=== PATIENT | female | born 2000 | race Caucasian/White ===

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

== ENCOUNTER 2019-01-01 10:34 | Day surgery (SDC) | payer BC ==
[~2019-01-01] VITALS: Ht 162.6 cm; Wt 90.6 kg
[~2019-01-01 10:34] MED LIST changes: +ACET500T15 PO; -ACETAMINOPHEN TAB 650MG DOSE (2X325MG) PO; +AMOX875T PO; +BACT400T PO; +CIPR500T3; +KETO10TAB PO; +LEVOTAB18 PO; -MAALOX 30 ML SUSP *UDC PO; -MOM 30ML SUSPENSION UDC PO; +NAPR-50 PO; +ONDA4TAB6; +TRAZ-160 PO; +VIST25CA PO; +WELLTAB38 PO; +WELLTAB40 PO; +ZOFR4TAB14 PO; +ZOLO25TA PO; -diphenhydrAMINE 25 MG CAP PO
[2019-01-01] MEDS ORDERED: MORPHINE 2 MG/ML 1ML SYRINGE (J2270) IV ONE (11:00)
[2019-01-01] MEDS ORDERED: NS 1,000 ML IV ONE (11:00)
[2019-01-01] MEDS ORDERED: ONDANSETRON 4MG/2ML VIAL (J2405) IV ONE (11:00)
[2019-01-01 11:16] LABS: BASO % 0.3 % (0.0-1.0); EOS # 0.1 10^3/uL (0.0-0.50); EOS % 0.6 % (0.0-3.0); HEMATOCRIT 41.9 % (36.0-47.0); HEMOGLOBIN 13.8 g/dl (12.0-15.5); LYMPH # 1.5 10^3/uL (1.5-6.5); LYMPH % 15.4 % (24.0-44.0); MEAN CORPUSCULAR HEMOGLOBIN 27.4 pg (27.0-33.0); MEAN CORPUSCULAR HGB CONC 32.9 g/dl (32.0-36.5); MEAN CORPUSCULAR VOLUME 83.3 fl (80.0-96.0); MONO # 0.7 10^3/uL (0.0-0.8); MONO % 7.2 % (0.0-5.0); NEUTROPHILS # 7.3 10^3/uL (1.8-7.7); NEUTROPHILS % 76.2 % (36.0-66.0); PLATELET COUNT, AUTOMATED 256 10^3/uL (150-450); RED BLOOD COUNT 5.03 10^6/uL (4.00-5.40); WHITE BLOOD COUNT 9.6 10^3/uL (4.0-10.0)
[2019-01-01 12:14] LABS: HCG, SERUM QUALITATIVE NEGATIVE (NEGATIVE)
[2019-01-01 12:21] LABS: ALBUMIN 3.8 GM/DL (3.2-5.2); ALT/SGPT 27 U/L (12-78); AMYLASE 27 U/L (25-115); BILIRUBIN,DIRECT < 0.1 MG/DL (0.0-0.2); BILIRUBIN,TOTAL 0.4 MG/DL (0.2-1.0); BLOOD UREA NITROGEN 7 MG/DL (7-18); CALCIUM LEVEL 8.4 MG/DL (8.5-10.1); CARBON DIOXIDE LEVEL 26 MEQ/L (21-32); CHLORIDE LEVEL 108 MEQ/L (98-107); GLUCOSE, FASTING 88 MG/DL (70-100); LIPASE 68 U/L (73-393); POTASSIUM SERUM 4.1 MEQ/L (3.5-5.1); SODIUM LEVEL 141 MEQ/L (136-145); TOTAL PROTEIN 6.8 GM/DL (6.4-8.2)
[2019-01-01] MEDS ORDERED: ISOVUE-370 76% 100ML VIAL (Q9967) As Ordered ONE (12:31)
--- NOTE | 2019-01-01 13:01 | REP ---
Clinical: Right lower quadrant pain. Technique: Axial contrast enhanced images from the lung bases to the pubic symphysis using 100 ml Isovue 370 intravenous contrast material with coronal and sagittal re-formations. Findings: Dilated hyperemic appendix measures 13 mm diameter with periappendiceal stranding, and findings are consistent with acute appendicitis (images 105-116). Small amount of free fluid noted in the pelvis. No evidence for bowel obstruction, perforation, or drainable collection/abscess. Remainder of the small large bowel is unremarkable. Liver, spleen, pancreas, gallbladder, bilateral adrenal glands and kidneys are normal. Pelvis demonstrates normal bladder and age-appropriate uterus/adnexa with IUD in satisfactory position. No significant adenopathy. No free air. Abdominal aorta and vasculature normal. Musculoskeletal structures are intact. Lung bases are clear. Impression: Acute appendicitis as described above. Electronically Signed by Chidi Banks MD 01/01/2019 12:52 P
[2019-01-01] MEDS ORDERED: PIPERACILLIN/TAZOBACTAM SOD 3.375 GM in D5W MINI-BAG PLUS 50 ML IV ONE ×2 (13:15→19:30)
[2019-01-01] MEDS ORDERED: ACET500T15 PO (13:39)
[2019-01-01] MEDS ORDERED: SKYL13.5 IU (13:39)
[2019-01-01] MEDS ORDERED: IBUP200T45 PO (13:39)
[2019-01-01] MEDS ORDERED: BUPIVACAINE HCL 0.25% 30 ML VIAL As Ordered ONE (14:10)
[2019-01-01] MEDS ORDERED: MORPHINE 4 MG/ML 1ML VIAL/SYRINGE (J2270) IV PRN ×2 (15:15)
[2019-01-01] MEDS ORDERED: KETOROLAC 30 MG/ML VIAL (J1885) IV PRN (15:15)
[2019-01-01] MEDS ORDERED: ONDANSETRON 4MG/2ML VIAL (J2405) IV PRN ×2 (15:15→19:00)
[2019-01-01] MEDS ORDERED: SUGAMMADEX SODIUM 500 MG/5 ML VIAL (BRIDION) As Ordered ONE (18:53)
[2019-01-01] MEDS ORDERED: MIDAZOLAM INJ 2 MG/2 ML VIAL (J2250) As Ordered ONE (18:53)
[2019-01-01] MEDS ORDERED: KETOROLAC 60 MG/2 ML VIAL (J1885) As Ordered ONE (18:53)
[2019-01-01] MEDS ORDERED: KETAMINE HCL 200 MG/20 ML VIAL As Ordered ONE (18:53)
[2019-01-01] MEDS ORDERED: ROCURONIUM BROMIDE 50 MG/5 ML VIAL As Ordered ONE (18:53)
[2019-01-01] MEDS ORDERED: dexameTHASONE 4 MG/ML 1ML VIAL (J1100) As Ordered ONE ×2 (18:53→18:54)
[2019-01-01] MEDS ORDERED: fentaNYL 250 MCG/5 ML INJECTION (J3010) As Ordered ONE (18:53)
[2019-01-01] MEDS ORDERED: ONDANSETRON 4MG/2ML VIAL (J2405) As Ordered ONE (18:53)
[2019-01-01] MEDS ORDERED: LIDOCAINE 2% INJ 100 MG/5 ML SDV (FOR ANES.) As Ordered ONE (18:53)
[2019-01-01] MEDS ORDERED: PROPOFOL 200 MG/20 ML VIAL As Ordered ONE (18:53)
[2019-01-01] MEDS ORDERED: NORCO, ANEXSIA 5/325MG TABLET (HYDROcodone/ACETAMINOPHEN) PO PRN (19:00)
[2019-01-01] MEDS ORDERED: fentaNYL 100 MCG/2 ML INJECTION (J3010) IV PRN (19:00)
[2019-01-01] MEDS ORDERED: ACETAMINOPHEN 500 MG TAB PO PRN (19:00)
[2019-01-01] MEDS ORDERED: LR 1,000 ML IV SCH (19:00)
[2019-01-01] MEDS ORDERED: MORPHINE 10 MG/ML 1ML VIAL (J2270) IV PRN (19:00)
[2019-01-01] MEDS ORDERED: METOCLOPRAMIDE INJ 10MG/2ML VIAL (J2765) IV PRN (19:00)
[2019-01-01] MEDS ORDERED: PERCOCET 5MG/325MG TAB PO PRN (19:00)
[2019-01-01] MEDS ORDERED: IBUPROFEN 400 MG TAB PO PRN (19:00)
[2019-01-01 19:55] VITALS: BP 110/75
[2019-01-01 20:25] VITALS: BP 118/70
[2019-01-01 20:55] VITALS: BP 102/58
[2019-01-01] MEDS: LR 1,000 ML IV SCH ×2 (21:48→23:12)
[2019-01-01 22:00] VITALS: BP 122/77
[2019-01-01 23:00] VITALS: BP 122/73
[2019-01-02] VITALS: BP 105/58
[2019-01-02 01:00] VITALS: BP 102/58
[2019-01-02 06:00] VITALS: BP 128/65
[2019-01-02] MEDS: LR 1,000 ML IV SCH (07:12)
[2019-01-02] MEDS ORDERED: NORCOTAB PO (09:45)
--- NOTE | 2019-01-02 14:06 | RO ---
DATE OF PROCEDURE: 01/01/2019 PREOPERATIVE DIAGNOSIS: Acute appendicitis. POSTOPERATIVE DIAGNOSIS: Acute appendicitis. PROCEDURE PERFORMED: Laparoscopic appendectomy. SURGEON: Dr. Wade Stahl RN INFORMATICS: ANESTHESIA: General. INDICATIONS FOR PROCEDURE: Patient is a pleasant 18-year-old woman who presented to the emergency department with a roughly 1-day history of abdominal pain which became localized to the right lower quadrant. She had marked tenderness on palpation in the right lower quadrant. A CT scan was done in the emergency department which showed a dilated and inflamed appendix. She is now for a laparoscopic appendectomy. OPERATIVE PROCEDURE: The patient was brought to the operating room and placed supine on the operating table. She was placed under general endotracheal anesthesia. The patient's abdomen was prepped and draped in a sterile fashion. 0.25% Marcaine was infiltrated at each of the trocar sites. A short supraumbilical midline incision was made and deepened through the abundant subcutaneous fat to the fascia. The fascia was opened along the midline and the peritoneum was opened bluntly. A Bennett cannula was inserted and the abdomen was inflated with carbon dioxide gas. The patient was tilted to a Trendelenburg position and rolled to the left. Initial inspection revealed a normal-appearing liver and gallbladder. Visualized portions of the small and large bowel were normal. There was omentum adherent down into the right lower quadrant. A 5 mm trocar was placed low in the midline and a second 5 mm trocar was placed in the left lower quadrant. Graspers were inserted. The omentum was peeled away from an underlying dilated inflamed appendix. The appendix was quite dilated in its distal two thirds approximately, but there was no evidence of perforation or gangrene. The appendix was elevated by the mesoappendix. The peritoneum of the mesoappendix was divided using the hook cautery. The mesoappendix was then stapled with a white load of the 45 mm endoscopic linear cutter. There was a small amount of bleeding at the staple line and this was controlled with the cautery. Some remaining fragments of the mesoappendix were divided with the cautery. The base of the appendix was nicely exposed and this was then stapled with a blue load of the linear cutter stapler. The appendix was placed in an Endopouch. Minimal bleeding points on the staple line were cauterized carefully. The right lower quadrant was then irrigated and inspected. There was no evidence of bleeding and the staple lines looked well approximated with no evidence of bleeding. The patient was returned to a flat position. The abdomen was deflated and the trocars were removed. The appendix was recovered through the Bennett site and this was sent for permanent pathology. The fascia at the Bennett site was closed with interrupted simple sutures of #2-0 Vicryl. The skin incisions were all closed with buried #5-0 Vicryl and Steri-Strips. Light dressings were applied. The patient tolerated the procedure well without apparent complication. She was awakened in the operating room, extubated and moved to the recovery room in stable condition.
== END 2019-01-02 10:33 | disposition home or self-care (01) ==
LOC: M ED 10:34 → M SDC 15:10 → M MS4PR 19:55 → M SDC 01-02 10:33
PROVIDERS: ATTEND Surgery
DX: K35.80 Unspecified acute appendicitis (principal); F32.9 Major depressive disorder, single episode, unspecified
CPT/HCPCS: 36415; 44970; 74177; 80048; 80076; 81001; 82150; 83690; 84703; 85025; 87086; 88304; 96365; 96375; 96376; 99284; J1100; J1885; J2250; J2270; J2405; J2543; J3010; Q9967

== ENCOUNTER → 2019-09-22 | Outpatient (CLI) | payer BC ==
[~2019-09-22] MED LIST changes: +HYDR-3715 PO; +IBUP200T45 PO; -NAPR-50 PO; +NAPR-837 PO; +SKYL13.5 IU; -TRAZ-160 PO; +TRAZ-252 PO
== END ==
LOC: MERGE 09:32 → M LRY 09:32
PROVIDERS: ATTEND Advanced Practice Midwife
DX: Z32.01 Encounter for pregnancy test, result positive (principal)

== ENCOUNTER → 2019-09-23 | Outpatient (CLI) | payer BC ==
--- NOTE | 2019-09-23 11:55 | REP ---
OB ULTRASOUND: Real-time sonographic evaluation of the gravid uterus performed. There is a single living intrauterine gestation with an estimated gestational age 17 weeks 4 days, EDC 02/27/2020. BPD 38 mm = 17 weeks 5 days HC 141 mm = 17 weeks 3 days AC 115 mm = 17 weeks 2 days FL 26 mm = 17 weeks 6 days HC/AC ratio 1.23 within normal range. Estimated weight 198 grams 44th percentile. SEEN/GROSSLY UNREMARKABLE Lateral ventricles Yes Posterior fossa Yes Upper lip Yes Four-chamber heart No LVOT Yes RVOT Yes Stomach Yes Cord insertion Yes Three vessel cord Yes Kidneys Yes Bladder Yes Spine Yes Cervix is closed and measures 3.5 cm in length. heart rate 160 beats per minute. position: Vertex. Placenta: Anterior and grade 0 with no previa or abruption. Amniotic fluid: Within normal limits. Posterior linear echogenic focus is noted along the inner myometrial surface and along amniotic surface likely representing the patient's IUD. Electronically Signed by Maikol Garcia MD 09/24/2019 10:31 A
== END ==
LOC: M RAD 09:17 → MERGE 09:17 → UNMERGE 09:17
PROVIDERS: ATTEND Advanced Practice Midwife
DX: Z36.3 Encounter for antenatal screening for malformations (principal); Z3A.17 17 weeks gestation of pregnancy; Z97.5 Presence of (intrauterine) contraceptive device

== ENCOUNTER → 2019-10-07 | Outpatient (CLI) | payer BC ==
[2019-10-07 14:45] LABS: BASO % 0.5 % (0.0-1.0); EOS # 0.1 10^3/uL (0.0-0.5); EOS % 0.9 % (0.0-3.0); HEMOGLOBIN 12.9 g/dl (12.0-15.5); LYMPH # 1.8 10^3/uL (1.5-5.0); LYMPH % 21.3 % (24.0-44.0); MEAN CORPUSCULAR HEMOGLOBIN 28.7 pg (27.0-33.0); MEAN CORPUSCULAR HGB CONC 33.1 g/dl (32.0-36.5); MEAN CORPUSCULAR VOLUME 86.7 fl (80.0-96.0); MONO # 0.6 10^3/uL (0.0-0.8); MONO % 6.7 % (0.0-5.0); NEUTROPHILS # 5.9 10^3/uL (1.5-8.5); NEUTROPHILS % 69.7 % (36.0-66.0); PLATELET COUNT, AUTOMATED 220 10^3/uL (150-450); WHITE BLOOD COUNT 8.5 10^3/uL (4.0-10.0)
[2019-10-07 15:04] LABS: CHLAMYDIA DNA AMPLIFICATION NEGATIVE (NEGATIVE); GC DNA AMPLIFICATION NEGATIVE (NEGATIVE)
[2019-10-08 10:26] LABS: HEPATITIS C VIRUS ABY INDEX 0.1 INDEX (<0.8); HIV 1&2 SCREEN CENTAUR NEGATIVE (NEGATIVE); RUBELLA IgG QUALITATIVE IMMUNE (IMMUNE)
== END ==
LOC: M PLALAB 09:23
PROVIDERS: ATTEND Advanced Practice Midwife
DX: O26.30 Retained intrauterine contraceptive device in pregnancy, unspecified trimester (principal)

== ENCOUNTER 2019-10-10 08:36 | Outpatient (CLI) | payer BC ==
[~2019-10-10] VITALS: Ht 160 cm; Wt 102.4 kg
[2019-10-10 09:48] LABS: MEAN CORPUSCULAR HGB CONC 33.3 g/dl (32.0-36.5); MEAN CORPUSCULAR VOLUME 84.1 fl (80.0-96.0); PLATELET COUNT, AUTOMATED 201 10^3/uL (150-450); RED BLOOD COUNT 4.64 10^6/uL (4.00-5.40); WHITE BLOOD COUNT 10.5 10^3/uL (4.0-10.0)
--- NOTE | 2019-10-10 10:13 | REP ---
Clinical: Epigastric pain and vomiting. Technique: Real time murdock scale ultrasound examination using curved array transducer. Findings: Liver and pancreas are normal. The gallbladder demonstrates 4 mm polyp without gallstones, wall thickening, or pericholecystic fluid. No biliary ductal dilatation is appreciated and the common bile duct measures 3.0 mm diameter. The right kidney is normal in reniform shape measuring 12.1 x 6.4 x 5.0 cm with mild hydronephrosis - likely induced. The patient is known to be 20 weeks . No ascites in the visualized right upper quadrant. Impression: 1. A 4 mm gallbladder polyp suggested without sonographic evidence for acute cholecystitis. 2. Mild hydronephrosis likely induced. Electronically Signed by Chidi Banks MD 10/10/2019 10:05 A
[2019-10-10 10:30] LABS: ALBUMIN 3.2 GM/DL (3.2-5.2); ALT/SGPT 21 U/L (12-78); AMYLASE 45 U/L (25-115); BILIRUBIN,DIRECT < 0.1 MG/DL (0.0-0.2); BILIRUBIN,TOTAL 0.2 MG/DL (0.2-1.0); LIPASE 65 U/L (73-393); TOTAL PROTEIN 6.6 GM/DL (6.4-8.2)
--- NOTE | 2019-10-10 11:06 | IPNPDOC ---
Text Note Date of Service The patient was seen on 10/10/19. NOTE Outpatient 18yo G 1 @ 20 wks, JAVIER 02/27/20. Presents with one day complaints of nausea/vomiting and diarrhea. Pt reports boyfriend had illness earlier this week. status reassuring for gestation Pt reports the discomfort is mostly epigastric that radiates down. Abdomen is soft, no UC on monitor LFT WNL GB sono shows small polyp without stones. Mild right hydronephrosis. Pt is now tolerating clear fluids. Reivewed risks of gall bladder in . Pt had eaten pizza last night with spaghetti and meatballs at lunch. Reviewed increased fluids, decreased fat in her diet. discharge home. keep next appt VS,Morena, I+O VS, Morena, I+O Laboratory Tests 10/10/19 09:37 Ivon Brownlee CNM Oct 10, 2019 11:06
== END 2019-10-10 11:04 | disposition home or self-care (01) ==
LOC: M LDO 08:36
PROVIDERS: ATTEND Advanced Practice Midwife
DX: O21.0 Mild hyperemesis gravidarum (principal); O99.89 Other specified diseases and conditions complicating pregnancy, childbirth and the puerperium; R19.7 Diarrhea, unspecified; O99.612 Diseases of the digestive system complicating pregnancy, second trimester; K82.8 Other specified diseases of gallbladder; N13.30 Unspecified hydronephrosis; Z3A.20 20 weeks gestation of pregnancy
CPT/HCPCS: 76705; 80076; 82150; 83690; 85027; G0378; G0463

== ENCOUNTER → 2019-11-21 | Outpatient (CLI) | payer BC ==
[2019-11-21 13:29] LABS: HEMATOCRIT 37.5 % (36.0-47.0); HEMOGLOBIN 12.3 g/dl (12.0-15.5); MEAN CORPUSCULAR HEMOGLOBIN 28.2 pg (27.0-33.0); MEAN CORPUSCULAR HGB CONC 32.8 g/dl (32.0-36.5); PLATELET COUNT, AUTOMATED 211 10^3/uL (150-450); RED BLOOD COUNT 4.36 10^6/uL (4.00-5.40)
== END ==
LOC: M PLALAB 10:57
PROVIDERS: ATTEND Advanced Practice Midwife
DX: Z34.02 Encounter for supervision of normal first pregnancy, second trimester (principal)

== ENCOUNTER → 2020-01-28 | Outpatient (REF) | payer BC | LOC: M PLALAB 10:04 | PROVIDERS: ATTEND Advanced Practice Midwife | DX: O09.893 Supervision of other high risk pregnancies, third trimester (principal) ==

== ENCOUNTER 2020-03-02 13:54 | Inpatient (IN) | payer BC ==
[~2020-03-02] VITALS: Ht 162.6 cm; Wt 107.0 kg
[2020-03-02 14:53] LABS: HEMATOCRIT 37.1 % (36.0-47.0); HEMOGLOBIN 12.6 g/dl (12.0-15.5); MEAN CORPUSCULAR HEMOGLOBIN 28.4 pg (27.0-33.0); MEAN CORPUSCULAR VOLUME 83.7 fl (80.0-96.0); PLATELET COUNT, AUTOMATED 167 10^3/uL (150-450); RED BLOOD COUNT 4.43 10^6/uL (4.00-5.40)
[2020-03-02 14:58] VITALS: BP 105/61
[2020-03-02] MEDS: miSOPROStol 50 MCG 1/2 TAB (S0191) SL SCH ×3 (15:17→23:25)
[2020-03-02 15:18] VITALS: BP 111/69
[2020-03-02] MEDS ORDERED: PRENTAB9 PO (16:00)
[2020-03-02 18:09] VITALS: BP 118/66
--- NOTE | 2020-03-02 18:39 | HPE ---
DATE OF ADMISSION: 03/02/2020 A 19-year-old 1, para 0 female at 40-4/7 weeks gestation via 17-week ultrasound, estimated date of confinement (EDC) of 02/27/2020, presents for labor induction. She has occasional contractions. She denies vaginal bleeding. There is good movement. COURSE: The patient initiated care at [facility]. She got with a Sarah intrauterine device (IUD) in place. She had a consult at the center due to family history of congenital heart defect. Everything was normal with the heart. There was mildly dilated kidney on ultrasound. MEDICAL HISTORY: 1. Impetigo. 2. Dislocated knee in 2016. 3. Suicidal ideation and depression, admitted to inpatient mental health unit December 2017. SURGICAL HISTORY: 1. Tooth extraction. 2. Appendectomy December 2018. ALLERGIES: None. SOCIAL HISTORY: Father of the baby is involved. The patient denies cigarettes, alcohol or drug use. FAMILY HISTORY: Noncontributory. PHYSICAL EXAMINATION: Blood pressure 124/74, pulse 84. No apparent distress. Head and neck exam: Normal. Lungs: Clear. Heart: Regular rate and rhythm. Abdomen: Nontender, gravid. heart tones: Category 1. Contractions: Rare. Sterile Vaginal Exam: 1, 50, -2, vertex. Extremities: Nontender. LABS: GBS negative. Blood type is A positive. ASSESSMENT: A 19-year-old 1 at 40-4/7 weeks gestation, presents for labor induction. PLAN: The patient is admitted on 03/02/2020. Risks of induction were discussed.
[2020-03-03] VITALS (26 sets, daily range): BP systolic 93–131; BP diastolic 51–78
[2020-03-03] MEDS: miSOPROStol 50 MCG 1/2 TAB (S0191) SL SCH (03:24)
[2020-03-03] MEDS ORDERED: LR 1,000 ML IV SCH (08:02)
[2020-03-03] MEDS ORDERED: OXYTOCIN DRIP 30 UNITS in IV 1 EA IV SCH ×2 (08:15→21:53)
[2020-03-03] MEDS ORDERED: miSOPROStol 50 MCG 1/2 TAB (S0191) PO ONE (09:30)
[2020-03-03] MEDS ORDERED: miSOPROStol 50 MCG 1/2 TAB (S0191) As Ordered ONE (09:34)
[2020-03-03] MEDS ORDERED: FENTANYL 2MCG/ML ROPIVACAINE 0.2% IN 0.9% NACL 100ML IVBAG As Ordered ONE (17:11)
[2020-03-03] MEDS ORDERED: NALOXONE INJ 0.4MG/1ML VIAL (J2310 PER 1MG) IV PRN (18:00)
[2020-03-03] MEDS ORDERED: EPIDURAL COMMENT XX SCH (18:00)
[2020-03-03] MEDS ORDERED: FENTANYL/ROPIVACAINE/NACL BAG 100 ML EPIDURAL SCH (18:00)
[2020-03-03] MEDS ORDERED: EPIDURAL/PCA KEYS XX PRN (18:00)
[2020-03-03] MEDS ORDERED: ONDANSETRON 4MG/2ML VIAL IV PRN (18:00)
[2020-03-03] MEDS ORDERED: REFRIGERATOR IV KEYS XX PRN (18:00)
[2020-03-03] MEDS ORDERED: LACTATED RINGER'S 1000 ML IV PRN (18:00)
[2020-03-03] MEDS ORDERED: ePHEDrine SULFATE 25 MG/5 ML(5MG/ML) SYRINGE IV PRN (18:00)
[2020-03-03] MEDS ORDERED: diphenhydrAMINE 50MG/ML VIAL (J1200) IV PRN (18:00)
[2020-03-03] MEDS ORDERED: MEASLES,MUMPS,RUBELLA VACCINE INJ (MMR-II) (90707) SC SCH (22:00)
[2020-03-03] MEDS ORDERED: METHYLERGONOVINE MALEATE 0.2 MG TAB PO PRN (22:00)
[2020-03-03] MEDS ORDERED: ACETAMINOPHEN 500 MG TAB PO PRN (22:00)
[2020-03-03] MEDS ORDERED: RHOGAM 300 MCG (1500 IU) INJ (J2790) IM SCH (22:00)
[2020-03-03] MEDS ORDERED: ACETAMINOPHEN TAB 650MG DOSE (2X325MG) PO PRN (22:00)
[2020-03-03] MEDS ORDERED: DOCUSATE SODIUM 100 MG CAP PO PRN (22:00)
[2020-03-03] MEDS ORDERED: DIBUCAINE 1% OINTMENT 30GM TOP PRN (22:00)
[2020-03-04] VITALS: BP 107/69
--- NOTE | 2020-03-04 02:46 | DN ---
DATE OF DELIVERY: 03/03/2020 Stephanie is a 19-year-old, 1, para 1-0-0-1 now, who was admitted to labor and delivery for induction of labor for term . Misoprostol, Motley bulb, and intravenous (IV) Pitocin was used and labor did ensue. She utilized an epidural for her labor coping. She reached complete dilation at 2053 hours. She pushed to a normal spontaneous vaginal delivery of a live male infant in right occiput anterior (BARBARA) position to right occiput transverse (ROT) position at 2125 hours. There was a nuchal cord times one, loose, reduced manually at the time of delivery. Shoulders delivered spontaneously, and the corpus immediately followed. The male was placed on the maternal abdomen, crying and active. Cord was clamped times two once pulsations ceased and cut by the father of the baby under my direction. Spontaneous expulsion of an intact placenta with three-vessel cord by Schultze mechanism was at 2130 hours. Vaginal sweep of the vagina retrieved a Sarah intrauterine device (IUD) completely intact. Uterine hemostasis was achieved with uterine fundal massage and IV Pitocin rapid infusion. Estimated blood loss 350 mL. Perineum and vagina inspected, noted to have a first-degree midline laceration. The laceration was repaired with #3-0 Vicryl Rapide in the usual fashion. [place] male weighed 7 pounds 6 ounces, 3350 grams, scores 8 and 9. Mom is going to breastfeed her son, and the family have named him Cesar. At the close of delivery, lap counts, needle counts, and instrument counts were correct and verified.
[2020-03-04 06:00] VITALS: BP 116/65
[2020-03-04] MEDS: IBUPROFEN 600 MG TAB PO PRN ×2 (09:02→17:01)
[2020-03-04] MEDS: PRENATAL VITAMINS CHEWABLE TABLET PO SCH (09:02)
[2020-03-04 18:18] VITALS: BP 124/67
[2020-03-05] MEDS: IBUPROFEN 800 MG TAB PO PRN ×2 (02:14→12:33)
[2020-03-05 06:00] VITALS: BP 115/53
[2020-03-05] MEDS: PRENATAL VITAMINS CHEWABLE TABLET PO SCH (08:32)
== END 2020-03-05 13:30 | disposition home or self-care (01) | DRG 560 ==
LOC: M LDI 13:54 → M OBS 03-03 23:40
PROVIDERS: ADMIT Specialist; ATTEND Advanced Practice Midwife
PROC: 3E0P7GC Introduction of Other Therapeutic Substance into Female Reproductive, Via Natural or Artificial Opening (ICD-10-PCS; 2020-03-02)
PROC: 10E0XZZ Delivery of Products of Conception, External Approach (ICD-10-PCS; principal; 2020-03-03)
PROC: 0HQ9XZZ Repair Perineum Skin, External Approach (ICD-10-PCS; 2020-03-03)
PROC: 0UPD7HZ Removal of Contraceptive Device from Uterus and Cervix, Via Natural or Artificial Opening (ICD-10-PCS; 2020-03-03)
DX: O48.0 Post-term pregnancy (principal); O69.81X0 Labor and delivery complicated by cord around neck, without compression, not applicable or unspecified; Z3A.40 40 weeks gestation of pregnancy; O70.0 First degree perineal laceration during delivery; Z37.0 Single live birth

== ENCOUNTER 2020-04-06 12:01 | Emergency (ER) | payer BC ==
[~2020-04-06] VITALS: Ht 162.6 cm; Wt 97.7 kg
[~2020-04-06 12:01] MED LIST changes: +PRENTAB9 PO
[2020-04-06] MEDS ORDERED: ACETAMINOPHEN 325 MG TAB PO ONE (12:45)
[2020-04-06 14:24] VITALS: BP 142/89
== END 2020-04-06 14:26 | disposition home or self-care (01) ==
LOC: M ED 12:01
DX: J70.5 Respiratory conditions due to smoke inhalation (principal); R51 Headache; F33.9 Major depressive disorder, recurrent, unspecified; F41.9 Anxiety disorder, unspecified

== ENCOUNTER → 2020-04-13 | Outpatient (CLI) | payer BC ==
--- NOTE | 2020-04-14 06:05 | REP ---
Clinical: Right upper quadrant pain. Technique: Real time murdock scale ultrasound examination using curved array transducer. Findings: Liver and pancreas are normal in contour, size, echogenicity without focal hepatic or pancreatic lesion identified. The gallbladder demonstrates small 5 mm polyp without wall thickening, gallstones, or pericholecystic fluid. No biliary ductal dilatation is appreciated and the common bile duct measures 3.4 mm diameter. The right kidney is normal in reniform shape without hydronephrosis and measures 11.5 x 5.6 x 4.1 cm. Impression: 5 mm benign-appearing gallbladder polyp. Otherwise normal right upper quadrant ultrasound. Electronically Signed by Chidi Banks MD 04/14/2020 05:56 A
== END ==
LOC: M LRY 08:49
PROVIDERS: ATTEND Surgery
DX: K82.4 Cholesterolosis of gallbladder (principal)

== ENCOUNTER → 2020-08-21 | Outpatient (CLI) | payer BC ==
[2020-08-21 12:12] LABS: BASO # 0.1 10^3/uL (0.0-0.2); EOS # 0.1 10^3/uL (0.0-0.5); EOS % 2.4 % (0.0-3.0); HEMATOCRIT 41.4 % (36.0-47.0); HEMOGLOBIN 13.7 g/dl (12.0-15.5); LYMPH # 1.9 10^3/uL (1.5-5.0); LYMPH % 38.4 % (24.0-44.0); MEAN CORPUSCULAR HEMOGLOBIN 27.8 pg (27.0-33.0); MEAN CORPUSCULAR HGB CONC 33.1 g/dl (32.0-36.5); MEAN CORPUSCULAR VOLUME 84.1 fl (80.0-96.0); MONO # 0.5 10^3/uL (0.0-0.8); NEUTROPHILS # 2.4 10^3/uL (1.5-8.5); NEUTROPHILS % 48.6 % (36.0-66.0); PLATELET COUNT, AUTOMATED 207 10^3/uL (150-450); RED BLOOD COUNT 4.92 10^6/uL (4.00-5.40)
[2020-08-21 12:43] LABS: ALBUMIN 3.7 GM/DL (3.2-5.2); ALT/SGPT 49 U/L (12-78); BILIRUBIN,DIRECT < 0.1 MG/DL (0.0-0.2); BILIRUBIN,TOTAL 0.2 MG/DL (0.2-1.0); IRON (FE) 54 UG/DL (50-170); PERCENT SATURATION 15.4 % (13.2-45.0); TOTAL IRON BINDING CAPACITY 351 UG/DL (250-450); TOTAL PROTEIN 6.8 GM/DL (6.4-8.2)
[2020-08-23 10:18] LABS: H PYLORI QUALITATIVE IgG NEGATIVE (NEGATIVE)
[2020-08-25 06:08] LABS: IGASUB2 68.8 mg/dL (73.2-301.2); IGASUB3 10.7 mg/dL (13.4-97.9); IgA SERUM (part of Subclasses) 91 mg/dL (87-352); TISSUE TRANSGLUTAMINASE IgA <2 U/mL (0-3)
[2020-08-30 15:07] LABS: CALPROTECTIN STOOL <16 ug/g (0-120); H PYLORI STOOL ANTIGEN Negative (Negative)
== END ==
LOC: M LAB 11:35
PROVIDERS: ATTEND Internal Medicine Gastroenterology
DX: R10.30 Lower abdominal pain, unspecified (principal)

== ENCOUNTER → 2020-08-23 | Outpatient (REF) | payer BC ==
[2020-08-23 19:12] LABS: CLOSTRIDIUM DIFFICILE PCR NEGATIVE (NEGATIVE)
== END ==
LOC: M LAB REF 17:11
PROVIDERS: ATTEND Internal Medicine Gastroenterology
DX: R19.7 Diarrhea, unspecified (principal)

== ENCOUNTER → 2020-11-04 | Outpatient (CLI) | payer BC ==
[~2020-11-04] MED LIST changes: +DICY20TA11 PO; +OMEP-221 PO
== END ==
LOC: M LABSMTC 12:30
PROVIDERS: ATTEND Anesthesiology
DX: Z01.812 Encounter for preprocedural laboratory examination (principal); Z20.828 Contact with and (suspected) exposure to other viral communicable diseases

== ENCOUNTER 2020-11-09 08:28 | Day surgery (SDC) | payer BC ==
[~2020-11-09] VITALS: Ht 162.6 cm; Wt 95.3 kg
[~2020-11-09 08:28] MED LIST changes: +NS 1,000 ML IV ONE
[2020-11-09] MEDS ORDERED: fentaNYL 100 MCG/2 ML INJECTION (J3010) As Ordered ONE (10:17)
[2020-11-09] MEDS ORDERED: propofoL 500 MG/50 ML VIAL As Ordered ONE (10:17)
[2020-11-09] MEDS ORDERED: LIDOCAINE 2% 100MG/5ML SDV (FOR ANES.) As Ordered ONE (10:17)
--- NOTE | 2020-11-09 10:30 | ROOR ---
Patient Name: Stephanie Wood Procedure Date: 11/09/2020 10:12 AM Date of : 2000 Age: 20 Room: [facility] Gender: Female Note Status: Finalized Procedure: Upper GI endoscopy Indications: Dyspepsia, Suspected celiac disease Providers: Nhan Kerr MD Referring MD[facility], Admin. Requesting Provider: Medicines: Monitored Anesthesia Care Complications: No immediate complications. Procedure: Pre-Anesthesia Assessment: - Prior to the procedure, a History and Physical was performed, and patient medications and allergies were reviewed. The patient is competent. The risks and benefits of the procedure and the sedation options and risks were discussed with the patient. All questions were answered and informed consent was obtained. Patient identification and proposed procedure were verified by the physician, the nurse and the anesthesiologist in the procedure room. Mental Status Examination: normal. Airway Examination: normal oropharyngeal airway and neck mobility. Respiratory Examination: clear to auscultation. CV Examination: normal. Prophylactic Antibiotics: The patient does not require prophylactic antibiotics. Prior Anticoagulants: The patient has taken no previous anticoagulant or antiplatelet agents. ASA Grade Assessment: III - A patient with severe systemic disease. After reviewing the risks and benefits, the patient was deemed in satisfactory condition to undergo the procedure. The anesthesia plan was to use monitored anesthesia care (MAC). Immediately prior to administration of medications, the patient was re-assessed for adequacy to receive sedatives. The heart rate, respiratory rate, oxygen saturations, blood pressure, adequacy of pulmonary ventilation, and response to care were monitored throughout the procedure. The physical status of the patient was re-assessed after the procedure. The Endoscope was introduced through the mouth, and advanced to the second part of duodenum. The upper GI endoscopy was accomplished without difficulty. The patient tolerated the procedure well. Findings: The examined esophagus was normal. The Z-line was regular and was found 37 cm from the incisors. Scattered mild inflammation characterized by erythema and granularity was found in the gastric antrum. Biopsies were taken with a cold forceps for Helicobacter pylori testing. Verification of patient identification for the specimen was done by the physician and nurse using the patient's name, date and medical record number. Estimated blood loss was minimal. Patchy mild inflammation characterized by erosions, erythema and granularity was found in the duodenal bulb, in the first portion of the duodenum and in the second portion of the duodenum. Biopsies for histology were taken with a cold forceps for evaluation of celiac disease. Impression: - Normal esophagus. - Z-line regular, 37 cm from the incisors. - Gastritis. Biopsied. - Duodenitis. Biopsied. Recommendation: - Patient has a contact number available for emergencies. The signs and symptoms of potential delayed complications were discussed with the patient. Return to normal activities tomorrow. Written discharge instructions were provided to the patient. - High fiber diet. - Continue present medications. - Await pathology results. - Telephone GI clinic for pathology results in 2 weeks. - Return to primary care physician. Procedure Code(s): --- Professional --- 07570, Esophagogastroduodenoscopy, flexible, transoral; with biopsy, single or multiple Diagnosis Code(s): --- Professional --- K29.70, Gastritis, unspecified, without bleeding K29.80, Duodenitis without bleeding R10.13, Epigastric pain CPT copyright 2019 [employer]. All rights reserved. The codes documented in this report are preliminary and upon maritime pilot review may be revised to meet current compliance requirements. Nhan Kerr MD Nhan Kerr MD 11/09/2020 10:29:50 AM Electronically signed by Nhan Kerr MD Number of Addenda: 0 Note Initiated On: 11/09/2020 10:12 AM Estimated Blood Loss: Estimated blood loss was minimal.
--- NOTE | 2020-11-09 11:07 | ROOR ---
Patient Name: Stephanie Wood Procedure Date: 11/09/2020 10:13 AM Date of : 2000 Age: 20 Room: [facility] Gender: Female Note Status: Finalized Procedure: Colonoscopy Indications: Chronic diarrhea Providers: Nhan Kerr MD Referring MD: [facility], Admin. Requesting Provider: Medicines: Monitored Anesthesia Care Complications: No immediate complications. Procedure: Pre-Anesthesia Assessment: - Prior to the procedure, a History and Physical was performed, and patient medications and allergies were reviewed. The patient is competent. The risks and benefits of the procedure and the sedation options and risks were discussed with the patient. All questions were answered and informed consent was obtained. Patient identification and proposed procedure were verified by the physician, the nurse and the anesthesiologist in the procedure room. Mental Status Examination: alert and oriented. Airway Examination: normal oropharyngeal airway and neck mobility. Respiratory Examination: clear to auscultation. CV Examination: normal. Prophylactic Antibiotics: The patient does not require prophylactic antibiotics. Prior Anticoagulants: The patient has taken no previous anticoagulant or antiplatelet agents. ASA Grade Assessment: II - A patient with mild systemic disease. After reviewing the risks and benefits, the patient was deemed in satisfactory condition to undergo the procedure. The anesthesia plan was to use monitored anesthesia care (MAC). Immediately prior to administration of medications, the patient was re-assessed for adequacy to receive sedatives. The heart rate, respiratory rate, oxygen saturations, blood pressure, adequacy of pulmonary ventilation, and response to care were monitored throughout the procedure. The physical status of the patient was re-assessed after the procedure. The Colonoscope was introduced through the anus and advanced to the terminal ileum, with identification of the appendiceal orifice and IC valve. The colonoscopy was performed without difficulty. The patient tolerated the procedure well. The quality of the bowel preparation was good. The terminal ileum, ileocecal valve, appendiceal orifice, and rectum were photographed. Scope insertion time was 2 minutes. Scope withdrawal time was 10 minutes. The total duration of the procedure was 14 minutes. Findings: The perianal and digital rectal examinations were normal. The terminal ileum appeared normal. Normal mucosa was found in the entire colon. Biopsies for histology were taken with a cold forceps from the right colon, left colon and rectosigmoid colon for evaluation of microscopic colitis. Verification of patient identification for the specimen was done by the physician and nurse using the patient's name, date and medical record number. Estimated blood loss was minimal. Non-bleeding external and internal hemorrhoids were found during retroflexion. The hemorrhoids were small. Impression: - The examined portion of the ileum was normal. - Normal mucosa in the entire examined colon. Biopsied. - Non-bleeding external and internal hemorrhoids. Recommendation: - Patient has a contact number available for emergencies. The signs and symptoms of potential delayed complications were discussed with the patient. Return to normal activities tomorrow. Written discharge instructions were provided to the patient. - High fiber diet. - Use original regular Metamucil one teaspoon PO daily. - Await pathology results. - Repeat colonoscopy at age 49 for screening purposes. - Telephone GI clinic for pathology results in 2 weeks. - Return to primary care physician. Procedure Code(s): --- Professional --- 35715, Colonoscopy, flexible; with biopsy, single or multiple Diagnosis Code(s): --- Professional --- K64.0, First degree hemorrhoids K52.9, Noninfective gastroenteritis and colitis, unspecified CPT copyright 2019 [employer]. All rights reserved. The codes documented in this report are preliminary and upon product safety professional review may be revised to meet current compliance requirements. Nhan Kerr MD Nhan Kerr MD 11/09/2020 11:07:08 AM Electronically signed by Nhan Kerr MD Number of Addenda: 0 Note Initiated On: 11/09/2020 10:13 AM Estimated Blood Loss: Estimated blood loss was minimal.
[2020-11-09 11:33] VITALS: BP 129/73
== END 2020-11-09 11:35 | disposition home or self-care (01) ==
LOC: M OPP 08:28
PROVIDERS: ATTEND Internal Medicine Gastroenterology
DX: K52.9 Noninfective gastroenteritis and colitis, unspecified (principal); K64.0 First degree hemorrhoids; K64.8 Other hemorrhoids; R10.13 Epigastric pain; K29.70 Gastritis, unspecified, without bleeding; K29.80 Duodenitis without bleeding
CPT/HCPCS: 43239; 45380; 88305; J3010

== ENCOUNTER → 2020-11-19 | Outpatient (REF) | payer BC ==
[~2020-11-19] MED LIST changes: -NS 1,000 ML IV ONE
== END ==
LOC: M SFHCWAGY 10:13
PROVIDERS: ATTEND Advanced Practice Midwife
DX: Z12.4 Encounter for screening for malignant neoplasm of cervix (principal)

== ENCOUNTER 2021-01-11 11:00 | Emergency (ER) | payer BC ==
[~2021-01-11] VITALS: Ht 165.1 cm; Wt 95.5 kg
[2021-01-11 11:43] LABS: BASO # 0.1 10^3/uL (0.0-0.2); BASO % 0.6 % (0.0-1.0); EOS # 0.1 10^3/uL (0.0-0.5); EOS % 0.9 % (0.0-3.0); HEMATOCRIT 41.7 % (36.0-47.0); HEMOGLOBIN 13.6 g/dl (12.0-15.5); LYMPH # 1.8 10^3/uL (1.5-5.0); LYMPH % 19.7 % (24.0-44.0); MEAN CORPUSCULAR HEMOGLOBIN 27.9 pg (27.0-33.0); MEAN CORPUSCULAR HGB CONC 32.6 g/dl (32.0-36.5); MEAN CORPUSCULAR VOLUME 85.5 fl (80.0-96.0); MONO # 0.6 10^3/uL (0.0-0.8); MONO % 6.4 % (2.0-8.0); NEUTROPHILS # 6.4 10^3/uL (1.5-8.5); NEUTROPHILS % 72.1 % (36.0-66.0); PLATELET COUNT, AUTOMATED 263 10^3/uL (150-450); RED BLOOD COUNT 4.88 10^6/uL (4.00-5.40); WHITE BLOOD COUNT 8.9 10^3/uL (4.0-10.0)
[2021-01-11 12:17] LABS: BLOOD UREA NITROGEN 9 MG/DL (7-18); CALCIUM LEVEL 9.3 MG/DL (8.5-10.1); CARBON DIOXIDE LEVEL 25 MEQ/L (21-32); CHLORIDE LEVEL 108 MEQ/L (98-107); CREATININE FOR GFR 0.82 MG/DL (0.55-1.30); GLOMERULAR FILTRATION RATE > 60.0 (>60); GLUCOSE, FASTING 85 MG/DL (70-100); HCG, SERUM QUANTITATIVE 2 MIU/ML; POTASSIUM SERUM 3.9 MEQ/L (3.5-5.1); SODIUM LEVEL 140 MEQ/L (136-145)
[2021-01-11 13:10] VITALS: BP 129/85
== END 2021-01-11 13:10 | disposition home or self-care (01) ==
LOC: M ED 11:00
DX: N93.9 Abnormal uterine and vaginal bleeding, unspecified (principal)

== ENCOUNTER → 2021-04-08 | Outpatient (CLI) | payer OTHER ==
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
== END ==
LOC: M RAD 11:12
PROVIDERS: ATTEND Psychiatry & Neurology Neurology
DX: M54.2 Cervicalgia (principal); M43.02 Spondylolysis, cervical region

== ENCOUNTER → 2021-06-29 | Outpatient (REF) | payer BC ==
[2021-06-29 12:19] LABS: APPEARANCE, URINE HAZY (CLEAR); BACTERIA, URINE AUTO 1+ (NEGATIVE); BILIRUBIN, URINE AUTO NEGATIVE (NEGATIVE); BLOOD, URINE BLOOD 1+ (NEGATIVE); COLOR, URINE YELLOW (YELLOW); GLUCOSE, URINE (UA) AUTO NEGATIVE (NEGATIVE); KETONE, URINE AUTO NEGATIVE (NEGATIVE); LEUKOCYTE ESTERASE, URINE AUTO 1+ (NEGATIVE); MUCUS, URINE SMALL (NEGATIVE); NITRITE, URINE AUTO NEGATIVE (NEGATIVE); PROTEIN, URINE AUTO NEGATIVE (NEGATIVE); RBC, URINE AUTO 13 /HPF (0-3); SPECIFIC GRAVITY URINE AUTO 1.013 (1.002-1.035); SQUAMOUS EPITHELIAL CELL UR AU 2 /HPF (0-6); UROBILINOGEN, URINE AUTO 0.2 mg/dL (0.0-2.0); WBC, URINE AUTO 64 /HPF (0-3)
== END ==
LOC: M LAB REF 11:37
PROVIDERS: ATTEND Physician Assistant Medical
DX: N39.0 Urinary tract infection, site not specified (principal)

== ENCOUNTER → 2021-06-29 | Outpatient (CLI) | payer OTHER, BC ==
[2021-06-29 16:12] LABS: HEMATOCRIT 39.7 % (36.0-47.0); MEAN CORPUSCULAR HEMOGLOBIN 28.1 pg (27.0-33.0); MEAN CORPUSCULAR HGB CONC 32.7 g/dl (32.0-36.5); MEAN CORPUSCULAR VOLUME 85.9 fl (80.0-96.0); PLATELET COUNT, AUTOMATED 198 10^3/uL (150-450); RED BLOOD COUNT 4.62 10^6/uL (4.00-5.40); WHITE BLOOD COUNT 8.1 10^3/uL (4.0-10.0)
[2021-06-29 17:15] LABS: HEPATITIS C VIRUS ABY INDEX < 0.0 INDEX (<0.8); HIV 1&2 SCREEN CENTAUR NEGATIVE (NEGATIVE)
[2021-06-29 17:55] LABS: GC DNA AMPLIFICATION NEGATIVE (NEGATIVE)
== END ==
LOC: M WUC 10:51
PROVIDERS: ATTEND Advanced Practice Midwife
DX: O99.211 Obesity complicating pregnancy, first trimester (principal)

== ENCOUNTER → 2021-07-05 | Outpatient (REF) | payer BC | LOC: M LAB REF 11:02 | PROVIDERS: ATTEND Physician Assistant | DX: R05 Cough (principal); R53.83 Other fatigue ==

== ENCOUNTER → 2021-07-21 | Outpatient (REF) | payer BC | LOC: M PLALAB 11:05 | PROVIDERS: ATTEND Obstetrics & Gynecology | DX: R30.0 Dysuria (principal) ==

== ENCOUNTER → 2021-07-21 | Outpatient (REF) | payer BC ==
[2021-07-21 20:21] LABS: APPEARANCE, URINE TURBID (CLEAR); BILIRUBIN, URINE AUTO NEGATIVE (NEGATIVE); BLOOD, URINE BLOOD NEGATIVE (NEGATIVE); COLOR, URINE YELLOW (YELLOW); GLUCOSE, URINE (UA) AUTO NEGATIVE (NEGATIVE); KETONE, URINE AUTO NEGATIVE (NEGATIVE); LEUKOCYTE ESTERASE, URINE AUTO 3+ (NEGATIVE); NITRITE, URINE AUTO NEGATIVE (NEGATIVE); PROTEIN, URINE AUTO NEGATIVE (NEGATIVE); SPECIFIC GRAVITY URINE AUTO 1.018 (1.002-1.035); UROBILINOGEN, URINE AUTO 0.2 mg/dL (0.0-2.0)
[2021-07-21 20:39] LABS: AMORPHOUS SEDIMENT MODERATE (NEGATIVE); BACTERIA, URINE AUTO NEGATIVE (NEGATIVE); RBC, URINE AUTO 3 /HPF (0-3); SQUAMOUS EPITHELIAL CELL UR AU 8 /HPF (0-6); WBC, URINE AUTO 69 /HPF (0-3)
== END ==
LOC: M SFHCWAGY 17:14
PROVIDERS: ATTEND Obstetrics & Gynecology
DX: R30.0 Dysuria (principal)

== ENCOUNTER → 2021-07-25 | Outpatient (CLI) | payer BC ==
[~2021-07-25] MED LIST changes: -DICY20TA11 PO; +DICY20TA20 PO; -IBUP200T45 PO; +IBUP200T46 PO; -OMEP-221 PO; +OMEP40CA5 PO
== END ==
LOC: M RAD 11:22
PROVIDERS: ATTEND Obstetrics & Gynecology
DX: N20.0 Calculus of kidney (principal); R31.9 Hematuria, unspecified

== ENCOUNTER → 2021-08-12 | Outpatient (CLI) | payer BC ==
[~2021-08-12] MED LIST changes: +DICY20TA11 PO; -DICY20TA20 PO; +IBUP200T45 PO; -IBUP200T46 PO; +OMEP-221 PO; -OMEP40CA5 PO
--- NOTE | 2021-08-12 15:11 | REP ---
INDICATION: ANATOMY COMPARISON: None. TECHNIQUE: Transabdominal obstetrical ultrasound with color Doppler evaluation. FINDINGS: Examination demonstrates a single live intrauterine in breech presentation. motion is identified by technologist. Placenta is noted anterior and grade 0 without evidence for placenta previa or abruption. Amniotic fluid volume is normal. Cervix measures 5.0 cm in length and appears closed.. Gestational age by current measurements 18 weeks 6 days with JAVIER 01/07/2022. FHR equals 153 beats per minute. BPD: 4.2 cm at 18 weeks 5 days HC: 15.9 cm at 18 weeks 5 days AC: 13.5 cm at 19 weeks 0 days FL: 2.9 cm at 18 weeks 6 days HL: 2.8 cm at 18 weeks 6 days HC/AC: 1.18 Estimated weight 262 grams (49thpercentile). Anatomical assessment demonstrates normal structures including cranium, choroid plexus, cavum, cerebellum/posterior fossa, facial features, lungs, four-chamber heart/ventricular outflow tracts, diaphragm, stomach, cord insertion/three-vessel cord, kidneys/bladder, spine, and extremities. IMPRESSION: Single live intrauterine in breech presentation demonstrating appropriate estimated weight. In conjunction with prior examination anatomical assessment is complete and normal. <Electronically signed by Chidi Banks > 08/12/21 [id number]
== END ==
LOC: M WHC 14:03
PROVIDERS: ATTEND Advanced Practice Midwife
DX: Z36.2 Encounter for other antenatal screening follow-up (principal); O99.211 Obesity complicating pregnancy, first trimester; Z3A.18 18 weeks gestation of pregnancy

== ENCOUNTER → 2021-10-04 | Outpatient (CLI) | payer BC ==
[~2021-10-04] MED LIST changes: -DICY20TA11 PO; +DICY20TA20 PO; -IBUP200T45 PO; +IBUP200T46 PO; -OMEP-221 PO; +OMEP40CA5 PO
[2021-10-04 12:11] LABS: HEMATOCRIT 36.8 % (36.0-47.0); HEMOGLOBIN 11.9 g/dl (12.0-15.5); MEAN CORPUSCULAR HEMOGLOBIN 27.7 pg (27.0-33.0); MEAN CORPUSCULAR HGB CONC 32.3 g/dl (32.0-36.5); MEAN CORPUSCULAR VOLUME 85.8 fl (80.0-96.0); PLATELET COUNT, AUTOMATED 177 10^3/uL (150-450); RED BLOOD COUNT 4.29 10^6/uL (4.00-5.40); WHITE BLOOD COUNT 8.1 10^3/uL (4.0-10.0)
== END ==
LOC: M PLALAB 08:59
PROVIDERS: ATTEND Advanced Practice Midwife
DX: Z34.92 Encounter for supervision of normal pregnancy, unspecified, second trimester (principal)

== ENCOUNTER → 2021-12-12 | Outpatient (REF) | payer BC | LOC: M SFHCWAGY 13:00 | PROVIDERS: ATTEND Advanced Practice Midwife | DX: Z34.93 Encounter for supervision of normal pregnancy, unspecified, third trimester (principal) ==

== ENCOUNTER 2022-01-10 18:33 | Inpatient (IN) | payer BC ==
[~2022-01-10] VITALS: Ht 162.6 cm; Wt 113.3 kg
[2022-01-10] MEDS ORDERED: PRENTAB9 PO (18:54)
[2022-01-10] MEDS ORDERED: HOME MED LIST COMPLETE! XX SCH (18:55)
[2022-01-10 19:09] VITALS: BP 136/86
[2022-01-10] MEDS ORDERED: LACTATED RINGER'S 1000 ML IV STA (19:36)
[2022-01-10] MEDS ORDERED: METHYLERGONOVINE MALEATE 0.2 MG/ML VIAL (J2210) IM PRN (19:40)
[2022-01-10] MEDS ORDERED: LIDOCAINE 1% MDV 20ML VIAL INFIL PRN (19:40)
[2022-01-10] MEDS ORDERED: CARBOPROST TROMETHAMINE 250 MCG/ML AMP IM PRN (19:40)
[2022-01-10] MEDS ORDERED: TRANEXAMIC ACID INJection 1,000 MG in NS 100 ML IV PRN (19:40)
[2022-01-10] MEDS ORDERED: LR 1,000 ML IV SCH (19:40)
[2022-01-10] MEDS ORDERED: OXYTOCIN DRIP 30 UNITS in IV 1 EA IV PRN (19:40)
[2022-01-10] MEDS ORDERED: OXYTOCIN 30 UNITS IN 0.9% NaCl 500ML IV BAG (J2590) As Ordered ONE (19:49)
[2022-01-10] MEDS ORDERED: OXYTOCIN DRIP 30 UNITS in IV 1 EA IV SCH (19:50)
[2022-01-10 20:04] LABS: HEMATOCRIT 35.4 % (36.0-47.0); HEMOGLOBIN 11.8 g/dl (12.0-15.5); MEAN CORPUSCULAR HEMOGLOBIN 26.9 pg (27.0-33.0); MEAN CORPUSCULAR HGB CONC 33.3 g/dl (32.0-36.5); MEAN CORPUSCULAR VOLUME 80.8 fl (80.0-96.0); PLATELET COUNT, AUTOMATED 174 10^3/uL (150-450); RED BLOOD COUNT 4.38 10^6/uL (4.00-5.40)
[2022-01-10 21:07] VITALS: BP 122/59
[2022-01-10 23:13] VITALS: BP 127/67
[2022-01-11] VITALS (21 sets, daily range): BP systolic 106–167; BP diastolic 55–88
[2022-01-11] MEDS ORDERED: FENTANYL 2MCG/ML ROPIVACAINE 0.2% IN 0.9% NACL 100ML IVBAG As Ordered ONE (00:51)
[2022-01-11] MEDS ORDERED: DIBUCAINE 1% OINTMENT 30GM TOP PRN (05:00)
[2022-01-11] MEDS ORDERED: RHOGAM 300 MCG (1500 IU) INJ (J2790) IM SCH (05:00)
[2022-01-11] MEDS ORDERED: OXYTOCIN DRIP 30 UNITS in IV 1 EA IV SCH (05:00)
[2022-01-11] MEDS ORDERED: DOCUSATE SODIUM 100MG CAPSULE PO PRN (05:00)
[2022-01-11] MEDS ORDERED: LR 1,000 ML IV SCH (05:00)
[2022-01-11] MEDS ORDERED: IBUPROFEN 600MG TAB PO PRN (05:00)
[2022-01-11] MEDS ORDERED: ONDANSETRON 4MG/2ML VIAL IV PRN (05:00)
[2022-01-11] MEDS ORDERED: MEASLES,MUMPS,RUBELLA VACCINE INJ (MMR-II) (90707) SC SCH (05:00)
[2022-01-11] MEDS ORDERED: ACETAMINOPHEN TAB 650MG DOSE (2X325MG) PO PRN (05:00)
[2022-01-11] MEDS: PRENATAL VITAMINS CHEWABLE TABLET PO SCH (08:22)
[2022-01-11] MEDS: IBUPROFEN 800 MG TAB PO PRN ×2 (08:24→18:48)
[2022-01-11] MEDS: ACETAMINOPHEN 500 MG TAB PO PRN ×2 (13:49→19:56)
[2022-01-12 05:46] VITALS: BP 123/61
[2022-01-12] MEDS: IBUPROFEN 800 MG TAB PO PRN (09:16)
[2022-01-12] MEDS: PRENATAL VITAMINS CHEWABLE TABLET PO SCH (09:16)
[2022-01-12] MEDS ORDERED: ACET-683 PO (11:34)
[2022-01-12] MEDS ORDERED: IBUP80TA PO (11:34)
== END 2022-01-12 12:26 | disposition home or self-care (01) | DRG 560 ==
LOC: M LDI 18:33 → M OBS 01-11 06:07
PROVIDERS: ADMIT Obstetrics & Gynecology; ATTEND Obstetrics & Gynecology
PROC: 3E033VJ Introduction of Other Hormone into Peripheral Vein, Percutaneous Approach (ICD-10-PCS; principal; 2022-01-10)
PROC: 10907ZC Drainage of Amniotic Fluid, Therapeutic from Products of Conception, Via Natural or Artificial Opening (ICD-10-PCS; 2022-01-11)
PROC: 0HQ9XZZ Repair Perineum Skin, External Approach (ICD-10-PCS; 2022-01-11)
DX: O70.0 First degree perineal laceration during delivery (principal); Z37.0 Single live birth; Z3A.40 40 weeks gestation of pregnancy

== ENCOUNTER → 2022-03-20 | Outpatient (CLI) | payer BC ==
[~2022-03-20] MED LIST changes: +ACET-683 PO; +IBUP80TA PO
[2022-03-20 11:04] LABS: HEMATOCRIT 39.9 % (36.0-47.0); HEMOGLOBIN 12.8 g/dl (12.0-15.5); MEAN CORPUSCULAR HEMOGLOBIN 27.5 pg (27.0-33.0); MEAN CORPUSCULAR HGB CONC 32.1 g/dl (32.0-36.5); MEAN CORPUSCULAR VOLUME 85.6 fl (80.0-96.0); PLATELET COUNT, AUTOMATED 215 10^3/uL (150-450); RED BLOOD COUNT 4.66 10^6/uL (4.00-5.40); WHITE BLOOD COUNT 5.3 10^3/uL (4.0-10.0)
[2022-03-20 11:29] LABS: ALBUMIN 3.6 GM/DL (3.2-5.2); ALT/SGPT 59 U/L (12-78); AMYLASE 35 U/L (25-115); BILIRUBIN,TOTAL 0.2 MG/DL (0.2-1.0); BLOOD UREA NITROGEN 13 MG/DL (7-18); CALCIUM LEVEL 9.5 MG/DL (8.5-10.1); CARBON DIOXIDE LEVEL 26 MEQ/L (21-32); CHLORIDE LEVEL 110 MEQ/L (98-107); CREATININE FOR GFR 0.75 MG/DL (0.55-1.30); GLOMERULAR FILTRATION RATE > 60.0 (>60); GLUCOSE, FASTING 90 MG/DL (70-100); LIPASE 104 U/L (73-393); POTASSIUM SERUM 4.1 MEQ/L (3.5-5.1); SODIUM LEVEL 143 MEQ/L (136-145); TOTAL PROTEIN 6.8 GM/DL (6.4-8.2)
== END ==
LOC: M PLALAB 07:32
PROVIDERS: ATTEND Obstetrics & Gynecology
DX: R10.13 Epigastric pain (principal)

== ENCOUNTER → 2022-03-20 | Outpatient (CLI) | payer BC | LOC: M WHC 06:38 | PROVIDERS: ATTEND Obstetrics & Gynecology | DX: K82.4 Cholesterolosis of gallbladder (principal); R16.1 Splenomegaly, not elsewhere classified ==

== ENCOUNTER 2023-03-15 08:43 | Emergency (ER) | payer OTHER, BC ==
[~2023-03-15] VITALS: Ht 162.6 cm; Wt 100.5 kg
[2023-03-15 11:57] VITALS: BP 137/88
== END 2023-03-15 12:10 | disposition home or self-care (01) ==
LOC: M ED 08:43
DX: S81.832A Puncture wound without foreign body, left lower leg, initial encounter (principal); W54.0XXA Bitten by dog, initial encounter; Y92.89 Other specified places as the place of occurrence of the external cause; Y93.89 Activity, other specified; Y99.0 Civilian activity done for income or pay

== ENCOUNTER → 2023-05-29 | Outpatient (CLI) | payer BC ==
[2023-05-29 10:37] LABS: HEMATOCRIT 39.3 % (36.0-47.0); HEMOGLOBIN 13.3 g/dl (12.0-15.5); MEAN CORPUSCULAR HEMOGLOBIN 28.7 pg (27.0-33.0); MEAN CORPUSCULAR HGB CONC 33.8 g/dl (32.0-36.5); MEAN CORPUSCULAR VOLUME 84.9 fl (80.0-96.0); PLATELET COUNT, AUTOMATED 238 10^3/uL (150-450); RED BLOOD COUNT 4.63 10^6/uL (4.00-5.40); WHITE BLOOD COUNT 7.6 10^3/uL (4.0-10.0)
[2023-05-29 11:32] LABS: HIV 1&2 SCREEN NEGATIVE (NEGATIVE)
[2023-05-29 11:40] LABS: HEPATITIS C VIRUS ABY INDEX 0.08 INDEX (<0.8)
[2023-05-29 12:05] LABS: GC DNA AMPLIFICATION NEGATIVE (NEGATIVE)
== END ==
LOC: M PLALAB 08:46
PROVIDERS: ATTEND Advanced Practice Midwife
DX: Z34.81 Encounter for supervision of other normal pregnancy, first trimester (principal)

== ENCOUNTER 2023-08-06 10:03 | Emergency (ER) | payer BC ==
[~2023-08-06] VITALS: Ht 162.6 cm; Wt 106.8 kg
[2023-08-06] MEDS ORDERED: diphenhydrAMINE 50MG/ML VIAL IV STA (12:07)
[2023-08-06] MEDS ORDERED: NS 1,000 ML IV ONE (12:10)
[2023-08-06] MEDS ORDERED: METOCLOPRAMIDE INJ 10MG/2ML VIAL IV ONE (12:10)
[2023-08-06 12:29] LABS: LIPASE 29 U/L (12-53)
[2023-08-06 12:31] LABS: ALBUMIN 3.1 G/DL (3.2-5.2); ALKALINE PHOSPHATASE 32 U/L (46-116); ALT/SGPT 11 U/L (7.0-40); AST/SGOT 15 U/L (<34); BILIRUBIN,DIRECT < 0.1 MG/DL (<0.4); BILIRUBIN,TOTAL 0.2 MG/DL (0.3-1.2); BLOOD UREA NITROGEN 9 MG/DL (9-23); CALCIUM LEVEL 8.8 MG/DL (8.5-10.1); CARBON DIOXIDE LEVEL 21 MMOL/L (20-31); CHLORIDE LEVEL 109 MMOL/L (98-107); CREATININE FOR GFR 0.46 MG/DL (0.55-1.30); GLOMERULAR FILTRATION RATE > 60.0 (>60); GLUCOSE, FASTING 84 MG/DL (60-100); MAGNESIUM LEVEL 1.6 MG/DL (1.8-2.4); SODIUM LEVEL 137 MMOL/L (136-145); TOTAL PROTEIN 6.1 G/DL (5.7-8.2)
[2023-08-06 12:33] LABS: BASO % 0.5 % (0.0-1.0); EOS # 0.2 10^3/uL (0.0-0.5); FREE T4 0.76 NG/DL (0.89-1.76); HEMATOCRIT 38.3 % (36.0-47.0); HEMOGLOBIN 12.7 g/dl (12.0-15.5); LYMPH # 1.6 10^3/uL (1.5-5.0); LYMPH % 18.5 % (24.0-44.0); MEAN CORPUSCULAR HEMOGLOBIN 28.3 pg (27.0-33.0); MEAN CORPUSCULAR HGB CONC 33.2 g/dl (32.0-36.5); MEAN CORPUSCULAR VOLUME 85.3 fl (80.0-96.0); MONO # 0.5 10^3/uL (0.0-0.8); MONO % 5.8 % (2.0-8.0); NEUTROPHILS # 6.1 10^3/uL (1.5-8.5); NEUTROPHILS % 72.3 % (36.0-66.0); PLATELET COUNT, AUTOMATED 185 10^3/uL (150-450); RED BLOOD COUNT 4.49 10^6/uL (4.00-5.40); WHITE BLOOD COUNT 8.5 10^3/uL (4.0-10.0)
[2023-08-06] MEDS ORDERED: B-2100TA PO (12:41)
[2023-08-06] MEDS ORDERED: ESSE250T PO (12:41)
[2023-08-06 12:44] LABS: INR 1.01
[2023-08-06 12:44] LABS: HCG, SERUM QUANTITATIVE 8104.1 MIU/ML (<4.2)
[2023-08-06 12:45] LABS: PARTIAL THROMBOPLASTIN TIME 25.5 SECONDS (24.8-34.2)
[2023-08-06 14:30] VITALS: BP 112/60; TEMP 98.6; O2SAT 98
== END 2023-08-06 14:36 | disposition home or self-care (01) ==
LOC: M ED 10:03
DX: G43.909 Migraine, unspecified, not intractable, without status migrainosus (principal); Z79.1 Long term (current) use of non-steroidal anti-inflammatories (NSAID); Z79.899 Other long term (current) drug therapy
CPT/HCPCS: 70450; 80053; 82248; 83690; 83735; 84439; 84443; 84702; 85025; 85610; 85730; 93005; 96361; 96374; 99285; J1200; J2765

== ENCOUNTER 2023-08-08 11:16 | Emergency (ER) | payer BC ==
[~2023-08-08] VITALS: Ht 162.6 cm; Wt 103.2 kg
[~2023-08-08 11:16] MED LIST changes: +B-2100TA PO; +ESSE250T PO
[2023-08-08 12:35] LABS: APPEARANCE, URINE CLOUDY (CLEAR); BACTERIA, URINE AUTO 1+ (NEGATIVE); BILIRUBIN, URINE AUTO NEGATIVE (NEGATIVE); BLOOD, URINE BLOOD NEGATIVE (NEGATIVE); COLOR, URINE YELLOW (YELLOW); GLUCOSE, URINE (UA) AUTO NEGATIVE (NEGATIVE); KETONE, URINE AUTO TRACE mg/dL (NEGATIVE); LEUKOCYTE ESTERASE, URINE AUTO 1+ (NEGATIVE); MUCUS, URINE SMALL (NEGATIVE); NITRITE, URINE AUTO NEGATIVE (NEGATIVE); PROTEIN, URINE AUTO NEGATIVE (NEGATIVE); RBC, URINE AUTO 1 /HPF (0-3); SPECIFIC GRAVITY URINE AUTO 1.019 (1.002-1.035); SQUAMOUS EPITHELIAL CELL UR AU 32 /HPF (0-6); UROBILINOGEN, URINE AUTO 0.2 mg/dL (0.0-2.0); WBC, URINE AUTO 2 /HPF (0-3)
[2023-08-08 15:14] LABS: BASO % 0.3 % (0.0-1.0); EOS # 0.2 10^3/uL (0.0-0.5); EOS % 1.6 % (0.0-3.0); HEMATOCRIT 38.5 % (36.0-47.0); HEMOGLOBIN 13.1 g/dl (12.0-15.5); LYMPH # 1.8 10^3/uL (1.5-5.0); LYMPH % 16.9 % (24.0-44.0); MEAN CORPUSCULAR HEMOGLOBIN 28.6 pg (27.0-33.0); MEAN CORPUSCULAR VOLUME 84.1 fl (80.0-96.0); MONO # 0.5 10^3/uL (0.0-0.8); NEUTROPHILS # 7.9 10^3/uL (1.5-8.5); NEUTROPHILS % 75.5 % (36.0-66.0); PLATELET COUNT, AUTOMATED 206 10^3/uL (150-450); RED BLOOD COUNT 4.58 10^6/uL (4.00-5.40); WHITE BLOOD COUNT 10.4 10^3/uL (4.0-10.0)
[2023-08-08 15:26] LABS: INR 1.03; PROTHROMBIN TIME 13.2 SECONDS (12.5-14.5)
[2023-08-08 15:27] LABS: PARTIAL THROMBOPLASTIN TIME 22.1 SECONDS (24.8-34.2)
[2023-08-08 16:06] LABS: ALBUMIN 3.3 G/DL (3.2-5.2); ALKALINE PHOSPHATASE 33 U/L (46-116); ALT/SGPT 12 U/L (7.0-40); AST/SGOT 13 U/L (<34); BILIRUBIN,DIRECT < 0.1 MG/DL (<0.4); BILIRUBIN,TOTAL 0.3 MG/DL (0.3-1.2); BLOOD UREA NITROGEN 6 MG/DL (9-23); CALCIUM LEVEL 8.8 MG/DL (8.5-10.1); CARBON DIOXIDE LEVEL 21 MMOL/L (20-31); CHLORIDE LEVEL 107 MMOL/L (98-107); CREATININE FOR GFR 0.47 MG/DL (0.55-1.30); GLOMERULAR FILTRATION RATE > 60.0 (>60); GLUCOSE, FASTING 80 MG/DL (60-100); MAGNESIUM LEVEL 1.6 MG/DL (1.8-2.4); POTASSIUM SERUM 3.8 MMOL/L (3.5-5.1); SODIUM LEVEL 137 MMOL/L (136-145); TOTAL PROTEIN 6.4 G/DL (5.7-8.2)
[2023-08-08] MEDS ORDERED: VERAPAMIL 40 MG TAB PO ONE (17:00)
[2023-08-08 17:28] LABS: TOTAL PROTEIN,RANDOM URINE 16.5 MG/DL (0.0-14.0)
[2023-08-08 17:33] LABS: CREATININE,RANDOM URINE 146.9 MG/DL
[2023-08-08 18:11] VITALS: BP 130/77
[2023-08-08] MEDS ORDERED: VERA40TA PO (18:28)
[2023-08-08 19:29] VITALS: BP 141/80; TEMP 97.8; O2SAT 98
[2023-08-08] MEDS ORDERED: FIORICET TAB PO ONE (19:30)
== END 2023-08-08 20:07 | disposition home or self-care (01) ==
LOC: M ED 13:42
DX: O99.891 Other specified diseases and conditions complicating pregnancy (principal); G43.909 Migraine, unspecified, not intractable, without status migrainosus; Z3A.20 20 weeks gestation of pregnancy; O99.342 Other mental disorders complicating pregnancy, second trimester; Z79.899 Other long term (current) drug therapy

== ENCOUNTER → 2023-08-16 | Outpatient (REF) | payer BC ==
[~2023-08-16] MED LIST changes: +VERA40TA PO
== END ==
LOC: M LAB REF 16:12
PROVIDERS: ATTEND Physician Assistant
DX: B34.9 Viral infection, unspecified (principal)

== ENCOUNTER → 2023-09-06 | Outpatient (CLI) | payer BC | LOC: M WHC 14:01 | PROVIDERS: ATTEND Obstetrics & Gynecology | DX: Z36.2 Encounter for other antenatal screening follow-up (principal) ==

== ENCOUNTER 2023-09-09 01:03 | Emergency (ER) | payer BC ==
[~2023-09-09] VITALS: Ht 160 cm; Wt 102.0 kg
[2023-09-09 02:23] LABS: HEMATOCRIT 35.8 % (36.0-47.0); HEMOGLOBIN 12.1 g/dl (12.0-15.5); MEAN CORPUSCULAR HEMOGLOBIN 28.9 pg (27.0-33.0); MEAN CORPUSCULAR HGB CONC 33.8 g/dl (32.0-36.5); MEAN CORPUSCULAR VOLUME 85.4 fl (80.0-96.0); PLATELET COUNT, AUTOMATED 191 10^3/uL (150-450); RED BLOOD COUNT 4.19 10^6/uL (4.00-5.40); WHITE BLOOD COUNT 9.9 10^3/uL (4.0-10.0)
[2023-09-09 02:42] LABS: AMPHETAMINES LEVEL URINE NEGATIVE (NEGATIVE); BARBITURATES URINE NEGATIVE (NEGATIVE); BENZODIAZEPINES URINE NEGATIVE (NEGATIVE); COCAINE METABOLITE URINE NEGATIVE (NEGATIVE)
[2023-09-09 02:43] LABS: CANNABINOIDS URINE NEGATIVE (NEGATIVE); METHADONE URINE NEGATIVE (NEGATIVE); OPIATES URINE NEGATIVE (NEGATIVE); PHENCYCLIDINE URINE NEGATIVE (NEGATIVE)
[2023-09-09 02:46] LABS: ETHYL ALCOHOL (ETHANOL) 0.013 % (0.000-0.010)
[2023-09-09 02:47] LABS: HCG, SERUM QUALITATIVE POSITIVE (NEGATIVE)
[2023-09-09 02:48] LABS: ALBUMIN 3.1 G/DL (3.2-5.2); ALKALINE PHOSPHATASE 40 U/L (46-116); ALT/SGPT 9 U/L (7.0-40); AST/SGOT 10 U/L (<34); BILIRUBIN,DIRECT < 0.1 MG/DL (<0.4); BILIRUBIN,TOTAL 0.2 MG/DL (0.3-1.2); BLOOD UREA NITROGEN 8 MG/DL (9-23); CALCIUM LEVEL 8.5 MG/DL (8.5-10.1); CARBON DIOXIDE LEVEL 21 MMOL/L (20-31); CHLORIDE LEVEL 105 MMOL/L (98-107); CPK CREATINE PHOSPHOKINASE 62 U/L (34-145); CREATININE FOR GFR 0.48 MG/DL (0.55-1.30); GLOMERULAR FILTRATION RATE > 60.0 (>60); GLUCOSE, FASTING 87 MG/DL (60-100); POTASSIUM SERUM 3.6 MMOL/L (3.5-5.1); SALICYLATE LEVEL < 3.0 MG/DL (<30); SODIUM LEVEL 137 MMOL/L (136-145); TOTAL PROTEIN 6.3 G/DL (5.7-8.2)
[2023-09-09 02:49] LABS: THYROID STIMULATING HORMONE 2.402 uIU/ML (0.55-4.78)
[2023-09-09 06:04] VITALS: BP 119/71; TEMP 96.9; O2SAT 99
== END 2023-09-09 06:40 | disposition home or self-care (01) ==
LOC: EDBD 01:03 → M ED 01:03 → EDUNIT# 01:47 → M ED 06:40
DX: R41.82 Altered mental status, unspecified (principal); Z79.1 Long term (current) use of non-steroidal anti-inflammatories (NSAID); Z79.899 Other long term (current) drug therapy

== ENCOUNTER → 2023-09-25 | Outpatient (CLI) | payer BC ==
[2023-09-25 18:26] LABS: HEMOGLOBIN 12.7 g/dl (12.0-15.5); MEAN CORPUSCULAR HEMOGLOBIN 29.1 pg (27.0-33.0); MEAN CORPUSCULAR HGB CONC 33.4 g/dl (32.0-36.5); MEAN CORPUSCULAR VOLUME 87.2 fl (80.0-96.0); PLATELET COUNT, AUTOMATED 193 10^3/uL (150-450); RED BLOOD COUNT 4.36 10^6/uL (4.00-5.40); WHITE BLOOD COUNT 9.2 10^3/uL (4.0-10.0)
[2023-09-25 20:42] LABS: CHLAMYDIA DNA AMPLIFICATION NEGATIVE (NEGATIVE); GC DNA AMPLIFICATION NEGATIVE (NEGATIVE)
== END ==
LOC: M PLALAB 15:04
PROVIDERS: ATTEND Obstetrics & Gynecology
DX: Z34.92 Encounter for supervision of normal pregnancy, unspecified, second trimester (principal)

== ENCOUNTER → 2023-09-25 | Outpatient (CLI) | payer BC | LOC: M WHC 14:37 | PROVIDERS: ATTEND Advanced Practice Midwife | DX: Z34.92 Encounter for supervision of normal pregnancy, unspecified, second trimester (principal) ==

== ENCOUNTER 2023-10-07 23:20 | Outpatient (CLI) | payer BC ==
[~2023-10-07] VITALS: Ht 162.6 cm; Wt 105.1 kg
[2023-10-07 23:38] VITALS: BP 128/58
[2023-10-07] MEDS ORDERED: HOME MED LIST COMPLETE! XX SCH (23:45)
[2023-10-08 01:14] LABS: HEMATOCRIT 34.2 % (36.0-47.0); HEMOGLOBIN 11.3 g/dl (12.0-15.5); MEAN CORPUSCULAR HEMOGLOBIN 28.5 pg (27.0-33.0); MEAN CORPUSCULAR VOLUME 86.4 fl (80.0-96.0); PLATELET COUNT, AUTOMATED 176 10^3/uL (150-450); RED BLOOD COUNT 3.96 10^6/uL (4.00-5.40); WHITE BLOOD COUNT 7.8 10^3/uL (4.0-10.0)
[2023-10-08 01:34] LABS: ALBUMIN 2.6 G/DL (3.2-5.2); ALKALINE PHOSPHATASE 47 U/L (46-116); ALT/SGPT < 9 U/L (7.0-40); AST/SGOT 11 U/L (<34); BILIRUBIN,TOTAL 0.2 MG/DL (0.3-1.2); BLOOD UREA NITROGEN 7 MG/DL (9-23); CALCIUM LEVEL 8.5 MG/DL (8.5-10.1); CARBON DIOXIDE LEVEL 25 MMOL/L (20-31); CHLORIDE LEVEL 107 MMOL/L (98-107); GLOMERULAR FILTRATION RATE > 60.0 (>60); GLUCOSE, FASTING 84 MG/DL (60-100); POTASSIUM SERUM 3.7 MMOL/L (3.5-5.1); SODIUM LEVEL 139 MMOL/L (136-145); TOTAL PROTEIN 5.6 G/DL (5.7-8.2)
[2023-10-08 02:16] VITALS: BP 112/59
[2023-10-08] MEDS ORDERED: LR 1,000 ML IV ONE (03:15)
[2023-10-08] MEDS ORDERED: LR 1,000 ML IV SCH (03:15)
[2023-10-08 05:56] LABS: CHLAMYDIA DNA AMPLIFICATION NEGATIVE (NEGATIVE); GC DNA AMPLIFICATION NEGATIVE (NEGATIVE)
== END 2023-10-08 04:30 | disposition home or self-care (01) ==
LOC: M LDO 23:20
PROVIDERS: ATTEND Obstetrics & Gynecology
DX: O26.892 Other specified pregnancy related conditions, second trimester (principal); R25.2 Cramp and spasm; R51.9 Headache, unspecified; O32.1XX9 Maternal care for breech presentation, other fetus; Z3A.27 27 weeks gestation of pregnancy
CPT/HCPCS: 59025; 76815; 80053; 81001; 85027; 87810; 87850; G0463

== ENCOUNTER 2023-10-12 10:16 | Outpatient (CLI) | payer BC ==
[~2023-10-12] VITALS: Ht 162.6 cm; Wt 106.7 kg
[2023-10-12 10:32] VITALS: BP 171/90
[2023-10-12 10:34] VITALS: BP 143/78
[2023-10-12 10:49] VITALS: BP 151/84
[2023-10-12] MEDS ORDERED: LR 1,000 ML IV ONE (11:00)
[2023-10-12 11:05] VITALS: BP 153/101
[2023-10-12 11:19] VITALS: BP 156/89
[2023-10-12 11:31] LABS: MEAN CORPUSCULAR HEMOGLOBIN 28.6 pg (27.0-33.0); MEAN CORPUSCULAR HGB CONC 33.3 g/dl (32.0-36.5); MEAN CORPUSCULAR VOLUME 85.7 fl (80.0-96.0); PLATELET COUNT, AUTOMATED 186 10^3/uL (150-450); WHITE BLOOD COUNT 9.2 10^3/uL (4.0-10.0)
[2023-10-12 11:50] LABS: URIC ACID 3.9 MG/DL (3.1-7.8)
[2023-10-12 11:52] LABS: LDH LACTATE DEHYDROGENASE 150 U/L (120-246)
[2023-10-12 11:53] LABS: ALT/SGPT 12 U/L (7.0-40); AST/SGOT 10 U/L (<34); BILIRUBIN,TOTAL 0.2 MG/DL (0.3-1.2); CREATININE FOR GFR 0.46 MG/DL (0.55-1.30); GLOMERULAR FILTRATION RATE > 60.0 (>60)
[2023-10-12 11:59] VITALS: BP 122/86
[2023-10-12 12:38] LABS: TOTAL PROTEIN,RANDOM URINE 17.4 MG/DL (0.0-14.0)
[2023-10-12 12:53] LABS: APPEARANCE, URINE HAZY (CLEAR); BACTERIA, URINE AUTO NEGATIVE (NEGATIVE); BILIRUBIN, URINE AUTO NEGATIVE (NEGATIVE); BLOOD, URINE BLOOD NEGATIVE (NEGATIVE); COLOR, URINE YELLOW (YELLOW); GLUCOSE, URINE (UA) AUTO NEGATIVE (NEGATIVE); KETONE, URINE AUTO NEGATIVE (NEGATIVE); LEUKOCYTE ESTERASE, URINE AUTO NEGATIVE (NEGATIVE); MUCUS, URINE SMALL (NEGATIVE); NITRITE, URINE AUTO NEGATIVE (NEGATIVE); PROTEIN, URINE AUTO NEGATIVE (NEGATIVE); RBC, URINE AUTO 0 /HPF (0-3); SPECIFIC GRAVITY URINE AUTO 1.021 (1.002-1.035); SQUAMOUS EPITHELIAL CELL UR AU 8 /HPF (0-6); UROBILINOGEN, URINE AUTO 0.2 mg/dL (0.0-2.0); WBC, URINE AUTO 1 /HPF (0-3)
== END 2023-10-12 13:25 | disposition home or self-care (01) ==
LOC: M LDO 10:16
PROVIDERS: ATTEND Advanced Practice Midwife
DX: O26.893 Other specified pregnancy related conditions, third trimester (principal); M54.50 Low back pain, unspecified; R10.2 Pelvic and perineal pain; Z3A.28 28 weeks gestation of pregnancy
CPT/HCPCS: 36415; 59025; 81001; 82247; 82570; 83615; 84156; 84450; 84460; 84550; 85027; G0463

== ENCOUNTER 2023-10-15 08:52 | Outpatient (CLI) | payer BC ==
[~2023-10-15] VITALS: Ht 162.6 cm; Wt 105.9 kg
[2023-10-15 09:10] VITALS: BP 114/75
[2023-10-15] MEDS ORDERED: HOME MED LIST COMPLETE! XX SCH (09:15)
== END 2023-10-15 10:38 | disposition home or self-care (01) ==
LOC: M LDO 08:52
PROVIDERS: ATTEND Advanced Practice Midwife
DX: O36.8130 Decreased fetal movements, third trimester, not applicable or unspecified (principal); O26.893 Other specified pregnancy related conditions, third trimester; R25.2 Cramp and spasm; Z3A.28 28 weeks gestation of pregnancy
CPT/HCPCS: 59025; 87086; G0463

== ENCOUNTER 2023-10-18 10:46 | Emergency (ER) | payer BC ==
[~2023-10-18] VITALS: Ht 162.6 cm; Wt 104.5 kg
[2023-10-18] MEDS ORDERED: NS 1,000 ML IV ONE (10:55)
[2023-10-18] MEDS ORDERED: ALCL0.05 (10:58)
[2023-10-18] MEDS ORDERED: TRIA1OI (10:58)
[2023-10-18 11:38] LABS: HEMATOCRIT 37.6 % (36.0-47.0); HEMOGLOBIN 12.4 g/dl (12.0-15.5); MEAN CORPUSCULAR HEMOGLOBIN 28.1 pg (27.0-33.0); MEAN CORPUSCULAR VOLUME 85.3 fl (80.0-96.0); PLATELET COUNT, AUTOMATED 187 10^3/uL (150-450); RED BLOOD COUNT 4.41 10^6/uL (4.00-5.40); WHITE BLOOD COUNT 8.1 10^3/uL (4.0-10.0)
[2023-10-18 12:13] LABS: BLOOD UREA NITROGEN < 5 MG/DL (9-23); CALCIUM LEVEL 8.8 MG/DL (8.5-10.1); CARBON DIOXIDE LEVEL 23 MMOL/L (20-31); CHLORIDE LEVEL 109 MMOL/L (98-107); CREATININE FOR GFR 0.44 MG/DL (0.55-1.30); GLOMERULAR FILTRATION RATE > 60.0 (>60); GLUCOSE, FASTING 74 MG/DL (60-100); POTASSIUM SERUM 4.2 MMOL/L (3.5-5.1); SODIUM LEVEL 139 MMOL/L (136-145)
[2023-10-18 13:00] VITALS: BP 95/52; TEMP 97; O2SAT 97
== END 2023-10-18 13:00 | disposition admitted as inpatient to this hospital (09) ==
LOC: EDBD 10:46 → M ED 10:46
DX: O99.891 Other specified diseases and conditions complicating pregnancy (principal); O26.893 Other specified pregnancy related conditions, third trimester

== ENCOUNTER 2023-10-18 13:03 | Outpatient (CLI) | payer BC ==
[~2023-10-18] VITALS: Ht 162.6 cm; Wt 104.6 kg
[~2023-10-18 13:03] MED LIST changes: +ALCL0.05; +TRIA1OI
[2023-10-18 13:32] VITALS: BP 84/54
[2023-10-18 13:33] VITALS: BP 126/57; O2SAT 100
[2023-10-18 14:24] VITALS: BP 120/58; O2SAT 100
[2023-10-18] MEDS ORDERED: HOME MED LIST COMPLETE! XX SCH (14:50)
[2023-10-18] MEDS ORDERED: FIORICET TAB PO ONE (15:00)
== END 2023-10-18 15:42 | disposition home or self-care (01) ==
LOC: M LDO 13:03
PROVIDERS: ATTEND Obstetrics & Gynecology
DX: O26.893 Other specified pregnancy related conditions, third trimester (principal); R51.9 Headache, unspecified; Z3A.29 29 weeks gestation of pregnancy
CPT/HCPCS: 59025; G0463

== ENCOUNTER → 2023-10-24 | Outpatient (REF) | payer BC, MEDICAID | LOC: M SFHCWAGY 10:33 | PROVIDERS: ATTEND Obstetrics & Gynecology | DX: Z34.93 Encounter for supervision of normal pregnancy, unspecified, third trimester (principal) ==

== ENCOUNTER → 2023-11-07 | Outpatient (REF) | payer BC, MEDICAID ==
[~2023-11-07] MED LIST changes: +ACET-907 PO
== END ==
LOC: M LAB REF 16:19
PROVIDERS: ATTEND Physician Assistant
DX: B34.9 Viral infection, unspecified (principal)

== ENCOUNTER → 2023-12-03 | Outpatient (REF) | payer MEDICAID ==
[~2023-12-03] MED LIST changes: -ACET-907 PO
== END ==
LOC: M PLALAB 11:02
PROVIDERS: ATTEND Obstetrics & Gynecology
DX: Z34.83 Encounter for supervision of other normal pregnancy, third trimester (principal)

== ENCOUNTER 2023-12-25 17:31 | Outpatient (CLI) | payer MEDICAID ==
[~2023-12-25] VITALS: Ht 162.6 cm; Wt 113.4 kg
[2023-12-25 17:53] VITALS: BP 105/59
[2023-12-25] MEDS ORDERED: ACET-907 PO (17:59)
[2023-12-25] MEDS ORDERED: HOME MED LIST COMPLETE! XX SCH (18:05)
[2023-12-25 19:14] VITALS: BP 111/62
== END 2023-12-25 21:02 | disposition home or self-care (01) ==
LOC: M LDO 17:31
PROVIDERS: ATTEND Obstetrics & Gynecology
DX: O99.353 Diseases of the nervous system complicating pregnancy, third trimester (principal); G43.119 Migraine with aura, intractable, without status migrainosus; Z3A.39 39 weeks gestation of pregnancy
CPT/HCPCS: 59025; G0463

== ENCOUNTER 2023-12-30 19:58 | Inpatient (IN) | payer MEDICAID, OTHER ==
[~2023-12-30] VITALS: Ht 162.6 cm; Wt 112.4 kg
[~2023-12-30 19:58] MED LIST changes: +ACET-907 PO
[2023-12-30] MEDS ORDERED: OXYTOCIN DRIP 30 UNITS in IV 1 EA IV PRN (20:20)
[2023-12-30] MEDS ORDERED: CARBOPROST TROMETHAMINE 250 MCG/ML AMP IM PRN (20:20)
[2023-12-30] MEDS ORDERED: LIDOCAINE 1% MDV 20ML VIAL INFIL PRN (20:20)
[2023-12-30] MEDS ORDERED: TRANEXAMIC ACID INJection 1,000 MG in NS 100 ML IV PRN (20:20)
[2023-12-30 20:27] VITALS: BP 120/75
[2023-12-30] MEDS ORDERED: HOME MED LIST COMPLETE! XX SCH (20:30)
[2023-12-30 20:58] VITALS: BP 118/75
[2023-12-30] MEDS: miSOPROStol 50MCG 1/2 TABLET SL SCH (20:58)
[2023-12-30 21:00] LABS: HEMATOCRIT 33.8 % (36.0-47.0); HEMOGLOBIN 11.5 g/dl (12.0-15.5); MEAN CORPUSCULAR HEMOGLOBIN 28.2 pg (27.0-33.0); MEAN CORPUSCULAR VOLUME 82.8 fl (80.0-96.0); PLATELET COUNT, AUTOMATED 156 10^3/uL (150-450); RED BLOOD COUNT 4.08 10^6/uL (4.00-5.40); WHITE BLOOD COUNT 7.8 10^3/uL (4.0-10.0)
[2023-12-30 22:05] VITALS: BP 120/92
[2023-12-30] MEDS: FAMOTIDINE 20 MG TAB PO PRN (22:45)
[2023-12-30] MEDS: CALCIUM CARBONATE 500 MG CHEW U/D PO PRN (22:46)
[2023-12-31] VITALS (33 sets, daily range): BP systolic 99–137; BP diastolic 55–86
[2023-12-31] MEDS: LR 1,000 ML IV SCH (03:22)
[2023-12-31] MEDS: BUTORPHANOL 2 MG/ML 1ML VIAL IV ONE (03:23)
[2023-12-31] MEDS: PROMETHAZINE 25MG/ML 1ML VIAL IV ONE (03:23)
[2023-12-31] MEDS: PRENATAL VITAMINS CHEWABLE TABLET PO SCH (09:00)
[2023-12-31] MEDS: OXYTOCIN DRIP 30 UNITS in IV 1 EA IV SCH (13:25)
[2023-12-31] MEDS ORDERED: ePHEDrine SULFATE 25 MG/5 ML(5MG/ML) SYRINGE IVP PRN (14:30)
[2023-12-31] MEDS ORDERED: ONDANSETRON 4MG 2ML VIAL IV PRN (14:30)
[2023-12-31] MEDS ORDERED: LR 500 ML IV PRN (14:30)
[2023-12-31] MEDS ORDERED: NALOXONE INJ 0.4MG/1ML VIAL IV PRN (14:30)
[2023-12-31] MEDS ORDERED: EPIDURAL/PCA KEYS XX PRN (14:30)
[2023-12-31] MEDS ORDERED: diphenhydrAMINE 50MG/ML VIAL IV PRN (14:30)
[2023-12-31] MEDS: LACTATED RINGER'S 1000 ML IV STA (16:56)
[2023-12-31] MEDS: FENTANYL/ROPIVACAINE/NACL BAG 100 ML EPIDURAL SCH (16:56)
[2023-12-31] MEDS ORDERED: IBUPROFEN 600MG TAB PO PRN (18:10)
[2023-12-31] MEDS ORDERED: ACETAMINOPHEN TAB 650MG DOSE (2X325MG) PO PRN (18:10)
[2023-12-31] MEDS ORDERED: DIBUCAINE 1% OINTMENT 30GM TOP PRN (18:10)
[2023-12-31] MEDS ORDERED: ANUSOL HC CREAM 30GM TOP PRN (18:10)
[2023-12-31] MEDS: METHYLERGONOVINE MALEATE 0.2MG/ML 1ML VIAL IM PRN (18:26)
[2023-12-31] MEDS: ACETAMINOPHEN 500 MG TAB PO PRN (18:34)
[2024-01-01] MEDS: IBUPROFEN 800 MG TAB PO PRN (00:20)
[2024-01-01 06:00] VITALS: BP 108/63
[2024-01-01] MEDS: DOCUSATE SODIUM 100MG CAPSULE PO PRN (10:59)
[2024-01-01] MEDS: MOM 30ML SUSPENSION UDC PO PRN (10:59)
[2024-01-01 18:00] VITALS: BP 106/64; O2SAT 97
[2024-01-01] MEDS: MEASLES,MUMPS,RUBELLA VACCINE INJ (MMR-II) SC.IMMUN ONE (19:33)
[2024-01-01] MEDS: RHOGAM 300MCG (1500IU) INJ IM SCH (19:34)
[2024-01-02 06:03] VITALS: BP 115/67; O2SAT 97
== END 2024-01-02 12:40 | disposition home or self-care (01) | DRG 560 ==
LOC: M LDI 19:58 → M OBS 12-31 22:46
PROVIDERS: ADMIT Obstetrics & Gynecology; ATTEND Advanced Practice Midwife
PROC: 3E0P7GC Introduction of Other Therapeutic Substance into Female Reproductive, Via Natural or Artificial Opening (ICD-10-PCS; 2023-12-30)
PROC: 10E0XZZ Delivery of Products of Conception, External Approach (ICD-10-PCS; principal; 2023-12-31)
PROC: 10907ZC Drainage of Amniotic Fluid, Therapeutic from Products of Conception, Via Natural or Artificial Opening (ICD-10-PCS; 2023-12-31)
DX: O45.93 Premature separation of placenta, unspecified, third trimester (principal); Z37.0 Single live birth; Z3A.39 39 weeks gestation of pregnancy

== ENCOUNTER 2024-02-25 10:21 | Emergency (ER) | payer MEDICAID, OTHER ==
[~2024-02-25] VITALS: Ht 162.6 cm; Wt 105.1 kg
[2024-02-25 12:12] LABS: BASO % 0.4 % (0.0-1.0); EOS # 0.2 10^3/uL (0.0-0.5); EOS % 3.7 % (0.0-3.0); HEMATOCRIT 39.9 % (36.0-47.0); HEMOGLOBIN 13.1 g/dl (12.0-15.5); LYMPH # 1.4 10^3/uL (1.5-5.0); LYMPH % 29.6 % (24.0-44.0); MEAN CORPUSCULAR HEMOGLOBIN 27.7 pg (27.0-33.0); MEAN CORPUSCULAR HGB CONC 32.8 g/dl (32.0-36.5); MEAN CORPUSCULAR VOLUME 84.4 fl (80.0-96.0); MONO # 0.4 10^3/uL (0.0-0.8); MONO % 8.3 % (2.0-8.0); NEUTROPHILS # 2.7 10^3/uL (1.5-8.5); NEUTROPHILS % 57.6 % (36.0-66.0); PLATELET COUNT, AUTOMATED 211 10^3/uL (150-450); RED BLOOD COUNT 4.73 10^6/uL (4.00-5.40); WHITE BLOOD COUNT 4.6 10^3/uL (4.0-10.0)
[2024-02-25 12:37] LABS: LIPASE 24 U/L (12-53)
[2024-02-25 12:40] LABS: ALBUMIN 3.6 G/DL (3.2-5.2); ALKALINE PHOSPHATASE 58 U/L (46-116); ALT/SGPT 58 U/L (7.0-40); AST/SGOT 32 U/L (<34); BILIRUBIN,DIRECT 0.2 MG/DL (<0.4); BILIRUBIN,TOTAL 0.6 MG/DL (0.3-1.2); BLOOD UREA NITROGEN 14 MG/DL (9-23); CALCIUM LEVEL 8.3 MG/DL (8.5-10.1); CARBON DIOXIDE LEVEL 28 MMOL/L (20-31); CHLORIDE LEVEL 104 MMOL/L (98-107); CREATININE FOR GFR 0.76 MG/DL (0.55-1.30); GLOMERULAR FILTRATION RATE > 60.0 (>60); GLUCOSE, FASTING 83 MG/DL (60-100); POTASSIUM SERUM 4.1 MMOL/L (3.5-5.1); SODIUM LEVEL 139 MMOL/L (136-145); TOTAL PROTEIN 6.8 G/DL (5.7-8.2)
[2024-02-25] MEDS: PANTOPRAZOLE 40MG VIAL IV ONE (13:28)
[2024-02-25] MEDS: ONDANSETRON 4MG 2ML VIAL IV ONE (13:28)
[2024-02-25] MEDS: NS 1,000 ML IV ONE (13:28)
[2024-02-25 14:20] LABS: RSV AMPLIFICATION NEGATIVE (NEGATIVE)
[2024-02-25 15:07] VITALS: BP 139/72; TEMP 96.8; O2SAT 100
[2024-02-25] MEDS ORDERED: ONDA4TAB6 PO (15:21)
== END 2024-02-25 15:37 | disposition home or self-care (01) ==
LOC: M ED 10:21
DX: R11.2 Nausea with vomiting, unspecified (principal); R19.7 Diarrhea, unspecified
CPT/HCPCS: 80048; 80076; 83690; 85025; 87631; 96361; 96374; 96375; 99284; C9113; J2405

== ENCOUNTER → 2024-06-20 | Outpatient (REF) | payer MEDICAID ==
[~2024-06-20] MED LIST changes: +ONDA-282; +ONDA-282 PO; -ONDA4TAB6
== END ==
LOC: M PLALAB 08:43
PROVIDERS: ATTEND Advanced Practice Midwife
DX: Z12.4 Encounter for screening for malignant neoplasm of cervix (principal)

== ENCOUNTER → 2024-06-26 | Outpatient (CLI) | payer OTHER | LOC: M RAD 07:42 | PROVIDERS: ATTEND Surgery | DX: K80.20 Calculus of gallbladder without cholecystitis without obstruction (principal) | CPT/HCPCS: 78227; A9537 ==

== ENCOUNTER 2024-09-11 15:27 | Day surgery (SDC) | payer OTHER ==
[~2024-09-11] VITALS: Ht 162.6 cm; Wt 107.1 kg
[2024-09-11] MEDS ORDERED: fentaNYL 250 MCG/5 ML INJECTION As Ordered ONE (16:54)
[2024-09-11] MEDS ORDERED: KETOROLAC 60MG 2ML VIAL As Ordered ONE (16:54)
[2024-09-11] MEDS ORDERED: ONDANSETRON 4MG 2ML VIAL As Ordered ONE (16:54)
[2024-09-11] MEDS ORDERED: propofoL 200 MG/20 ML VIAL As Ordered ONE (16:54)
[2024-09-11] MEDS ORDERED: MIDAZOLAM INJ 2MG/2ML VIAL As Ordered ONE (16:54)
[2024-09-11] MEDS ORDERED: METOCLOPRAMIDE INJ 10MG/2ML VIAL As Ordered ONE (16:54)
[2024-09-11] MEDS ORDERED: SUGAMMADEX SODIUM 500 MG/5 ML VIAL (BRIDION) As Ordered ONE (16:54)
[2024-09-11] MEDS ORDERED: dexmedeTOMIDine (4MCG/ML)200MCG/50ML BTL (PRECEDEX) As Ordered ONE (16:54)
[2024-09-11] MEDS ORDERED: ROCURONIUM BROMIDE 50MG/5ML VIAL As Ordered ONE (16:54)
[2024-09-11] MEDS ORDERED: LIDOCAINE 2% 100MG/5ML SDV (FOR ANES.) As Ordered ONE (16:54)
[2024-09-11] MEDS: INDOCYANINE GREEN 25MG VIAL (IC-GREEN) IV ONE (17:13)
[2024-09-11] MEDS: ceFAZolin SOD 2 GM in IV 1 EA IV ONE (17:30)
[2024-09-11] MEDS: HEPARIN SOD (PORCINE) 5000UNITS/ML 1ML VIAL/SYRINGE SQ ONE (17:38)
[2024-09-11] MEDS ORDERED: ACETAMINOPHEN 1000MG 100ML IV BAG As Ordered ONE (17:46)
[2024-09-11] MEDS ORDERED: fentaNYL 100 MCG/2 ML INJECTION IV PRN (18:30)
[2024-09-11] MEDS ORDERED: ONDANSETRON 4MG 2ML VIAL IV PRN (18:30)
[2024-09-11] MEDS ORDERED: NS 1,000 ML IV SCH (18:30)
[2024-09-11] MEDS: oxyCODONE 5MG TAB PO PRN (18:44)
[2024-09-11] MEDS: HYDROMORPHONE HCL 0.5 MG/ 0.5 ML SYRINGE IV PRN (18:44)
[2024-09-11 19:35] VITALS: BP 129/89; TEMP 97.1; O2SAT 97
== END 2024-09-11 19:52 | disposition home or self-care (01) ==
LOC: M SDC 15:27
PROVIDERS: ATTEND Surgery
DX: K80.20 Calculus of gallbladder without cholecystitis without obstruction (principal); F17.290 Nicotine dependence, other tobacco product, uncomplicated
CPT/HCPCS: 47563; 81025; 88304; J0131; J0665; J0690; J1100; J1171; J1885; J2250; J2405; J2765; J3010; Q9968; S2900

== ENCOUNTER 2024-09-13 14:53 | Emergency (ER) | payer OTHER ==
[~2024-09-13] VITALS: Ht 162.6 cm; Wt 104.5 kg
[2024-09-13] MEDS ORDERED: IBUP200C25 PO (15:05)
[2024-09-13] MEDS ORDERED: ACET-907 PO (15:05)
[2024-09-13] MEDS ORDERED: HYDR-3713 (15:05)
[2024-09-13 15:53] LABS: BASO % 0.5 % (0.0-1.0); EOS # 0.1 10^3/uL (0.0-0.5); EOS % 0.9 % (0.0-3.0); HEMATOCRIT 43.9 % (36.0-47.0); HEMOGLOBIN 14.7 g/dl (12.0-15.5); LYMPH # 2.2 10^3/uL (1.5-5.0); LYMPH % 29.4 % (24.0-44.0); MEAN CORPUSCULAR HEMOGLOBIN 28.5 pg (27.0-33.0); MEAN CORPUSCULAR HGB CONC 33.5 g/dl (32.0-36.5); MEAN CORPUSCULAR VOLUME 85.1 fl (80.0-96.0); MONO # 0.5 10^3/uL (0.0-0.8); MONO % 6.6 % (2.0-8.0); NEUTROPHILS # 4.6 10^3/uL (1.5-8.5); NEUTROPHILS % 62.3 % (36.0-66.0); PLATELET COUNT, AUTOMATED 231 10^3/uL (150-450); RED BLOOD COUNT 5.16 10^6/uL (4.00-5.40); WHITE BLOOD COUNT 7.4 10^3/uL (4.0-10.0)
[2024-09-13] MEDS: ONDANSETRON 4MG 2ML VIAL IV ONE (16:00)
[2024-09-13] MEDS: NS 500 ML IV ONE (16:00)
[2024-09-13] MEDS: MORPHINE 2 MG/ML 1ML VIAL IV PRN (16:01)
[2024-09-13 16:10] LABS: LIPASE 38 U/L (12-53)
[2024-09-13 16:12] LABS: ALBUMIN 3.9 G/DL (3.2-5.2); ALKALINE PHOSPHATASE 40 U/L (35-104); ALT/SGPT 55 U/L (7.0-40); AMYLASE 42 U/L (30-118); AST/SGOT 36 U/L (<34); BILIRUBIN,DIRECT 0.1 MG/DL (<0.4); BILIRUBIN,TOTAL 0.3 MG/DL (0.3-1.2); BLOOD UREA NITROGEN 13 MG/DL (9-23); CALCIUM LEVEL 9.8 MG/DL (8.5-10.1); CARBON DIOXIDE LEVEL 26 MMOL/L (20-31); CHLORIDE LEVEL 110 MMOL/L (98-107); CREATININE FOR GFR 0.68 MG/DL (0.55-1.30); GLOMERULAR FILTRATION RATE > 60.0 (>60); GLUCOSE, FASTING 92 MG/DL (60-100); SODIUM LEVEL 141 MMOL/L (136-145); TOTAL PROTEIN 7.2 G/DL (5.7-8.2)
[2024-09-13] MEDS ORDERED: ISOVUE-370 76% 100ML VIAL As Ordered ONE (16:24)
[2024-09-13] MEDS ORDERED: ONDA-282 PO (18:09)
[2024-09-13 18:14] VITALS: BP 115/81; TEMP 98.2; O2SAT 98
== END 2024-09-13 18:27 | disposition home or self-care (01) ==
LOC: M ED 14:53
DX: R55 Syncope and collapse (principal); G89.18 Other acute postprocedural pain; R10.12 Left upper quadrant pain; Z98.890 Other specified postprocedural states; Z90.49 Acquired absence of other specified parts of digestive tract; R16.1 Splenomegaly, not elsewhere classified
CPT/HCPCS: 74177; 80047; 80048; 80076; 82150; 83605; 83690; 85025; 86850; 86900; 86901; 87040; 93005; 93041; 96361; 96374; 96375; 99285; J2405; Q9967

== ENCOUNTER → 2024-12-02 | Outpatient (CLI) | payer OTHER ==
[~2024-12-02] MED LIST changes: +HYDR-3713; +IBUP200C25 PO
[2024-12-02 14:55] LABS: HEMATOCRIT 41.3 % (36.0-47.0); HEMOGLOBIN 13.9 g/dl (12.0-15.5); MEAN CORPUSCULAR HEMOGLOBIN 28.1 pg (27.0-33.0); MEAN CORPUSCULAR HGB CONC 33.7 g/dl (32.0-36.5); MEAN CORPUSCULAR VOLUME 83.4 fl (80.0-96.0); PLATELET COUNT, AUTOMATED 191 10^3/uL (150-450); RED BLOOD COUNT 4.95 10^6/uL (4.00-5.40); WHITE BLOOD COUNT 6.1 10^3/uL (4.0-10.0)
[2024-12-02 15:31] LABS: HIV 1&2 SCREEN NEGATIVE (NEGATIVE)
[2024-12-02 15:40] LABS: HEPATITIS C VIRUS ABY INDEX < 0.02 INDEX (<0.8)
[2024-12-02 16:07] LABS: GC DNA AMPLIFICATION NEGATIVE (NEGATIVE)
== END ==
LOC: M PLALAB 11:40
PROVIDERS: ATTEND Obstetrics & Gynecology
DX: Z34.82 Encounter for supervision of other normal pregnancy, second trimester (principal)

== ENCOUNTER → 2025-01-23 | Outpatient (CLI) | payer OTHER | LOC: M WHC 06:44 | PROVIDERS: ATTEND Obstetrics & Gynecology | DX: Z36.89 Encounter for other specified antenatal screening (principal) ==

== ENCOUNTER → 2025-02-06 | Outpatient (CLI) | payer OTHER | LOC: M WHC 15:01 | PROVIDERS: ATTEND Obstetrics & Gynecology | DX: Z36.2 Encounter for other antenatal screening follow-up (principal); Z3A.20 20 weeks gestation of pregnancy ==

== ENCOUNTER → 2025-03-04 | Outpatient (CLI) | payer OTHER | LOC: M WHC 07:24 | PROVIDERS: ATTEND Specialist | DX: Z34.82 Encounter for supervision of other normal pregnancy, second trimester (principal) ==

== ENCOUNTER → 2025-05-26 | Outpatient (REF) | payer OTHER ==
[~2025-05-26] MED LIST changes: -ESSE250T PO; +MAGN250T17 PO
== END ==
LOC: M PLALAB 11:15
PROVIDERS: ATTEND Advanced Practice Midwife
DX: Z36.89 Encounter for other specified antenatal screening (principal); Z3A.36 36 weeks gestation of pregnancy

== ENCOUNTER → 2025-05-29 | Outpatient (CLI) | payer OTHER | LOC: M WHC 13:17 | PROVIDERS: ATTEND Advanced Practice Midwife | DX: Z36.2 Encounter for other antenatal screening follow-up (principal); Z3A.36 36 weeks gestation of pregnancy ==

== ENCOUNTER 2025-06-12 15:47 | Inpatient (IN) | payer OTHER ==
[2025-06-12] VITALS (9 sets, daily range): BP systolic 101–131; BP diastolic 51–75
[~2025-06-12] VITALS: Ht 162.6 cm; Wt 118.2 kg
[2025-06-12] MEDS ORDERED: PNV1TABL16 PO (16:09)
[2025-06-12] MEDS ORDERED: HOME MED LIST COMPLETE! XX SCH (16:10)
[2025-06-12] MEDS ORDERED: TRANEXAMIC ACID INJection 1,000 MG in NS 100 ML IV PRN (20:45)
[2025-06-12] MEDS ORDERED: LIDOCAINE 1% MDV 20 ML VIAL INFIL PRN (20:45)
[2025-06-12] MEDS ORDERED: METHYLERGONOVINE MALEATE 0.2 MG/ML 1 ML VIAL IM PRN (20:45)
[2025-06-12] MEDS ORDERED: CARBOPROST TROMETHAMINE 250 MCG/ML AMP IM PRN (20:45)
[2025-06-12] MEDS ORDERED: OXYTOCIN DRIP 30 UNITS in IV 1 EA IV PRN (20:45)
[2025-06-12 21:05] LABS: PLATELET COUNT, AUTOMATED 143 10^3/uL (150-450)
[2025-06-12] MEDS: OXYTOCIN DRIP 30 UNITS in IV 1 EA IV SCH (21:07)
[2025-06-12] MEDS: LR 1,000 ML IV SCH (21:07)
[2025-06-12 21:58] LABS: HIV 1&2 SCREEN NEGATIVE (NEGATIVE)
[2025-06-12] MEDS: ACETAMINOPHEN 500 MG TAB PO PRN (22:32)
[2025-06-13] VITALS (31 sets, daily range): BP systolic 90–129; BP diastolic 48–73; O2SAT 96–97
[2025-06-13] MEDS ORDERED: ONDANSETRON 4MG 2ML VIAL IV PRN (00:40)
[2025-06-13] MEDS ORDERED: diphenhydrAMINE 50 MG/ML VIAL IV PRN (00:40)
[2025-06-13] MEDS ORDERED: NALOXONE INJ 0.4 MG/1 ML VIAL IV PRN (00:40)
[2025-06-13] MEDS ORDERED: LR 500 ML IV PRN (00:40)
[2025-06-13] MEDS: LACTATED RINGER'S 1000 ML IV STA (00:40)
[2025-06-13] MEDS ORDERED: EPIDURAL/PCA KEYS XX PRN (00:40)
[2025-06-13] MEDS: FENTANYL/ROPIVACAINE/NACL BAG 100 ML EPIDURAL SCH (00:43)
[2025-06-13] MEDS ORDERED: METHYLERGONOVINE MALEATE 0.2 MG TAB PO PRN (05:50)
[2025-06-13] MEDS ORDERED: CALCIUM CARBONATE 500 MG CHEW U/D PO PRN (05:50)
[2025-06-13] MEDS ORDERED: ACETAMINOPHEN 325 MG TAB PO PRN (05:50)
[2025-06-13] MEDS ORDERED: RHOGAM 300MCG (1500IU) INJ IM SCH (05:50)
[2025-06-13] MEDS ORDERED: MOM 30 ML SUSPENSION UDC PO PRN (05:50)
[2025-06-13] MEDS ORDERED: ANUSOL HC CREAM 30 GM TOP PRN (05:50)
[2025-06-13] MEDS: DIBUCAINE 1% OINTMENT 30 GM TOP PRN (09:05)
[2025-06-13] MEDS: PRENATAL VITAMINS CHEWABLE TABLET PO SCH (09:05)
[2025-06-13] MEDS: IBUPROFEN 600 MG TAB PO PRN (10:36)
[2025-06-13] MEDS: ACETAMINOPHEN 500 MG TAB PO PRN (15:09)
[2025-06-13] MEDS: IBUPROFEN 800 MG TAB PO PRN (16:10)
[2025-06-14] MEDS: DOCUSATE SODIUM 100 MG CAPSULE PO PRN (00:06)
[2025-06-14 05:44] VITALS: BP 130/57; O2SAT 98
[2025-06-15] MEDS ORDERED: MEASLES,MUMPS,RUBELLA VACCINE INJ (MMR-II) SC.IMMUN ONE (09:00)
== END 2025-06-14 12:36 | disposition home or self-care (01) | DRG 560 ==
LOC: M LDO 15:47 → M LDI 20:13 → M OBS 06-13 08:20
PROVIDERS: ADMIT Advanced Practice Midwife; ATTEND Advanced Practice Midwife
PROC: 10E0XZZ Delivery of Products of Conception, External Approach (ICD-10-PCS; principal; 2025-06-13)
DX: O80 Encounter for full-term uncomplicated delivery (principal); Z37.0 Single live birth; Z3A.38 38 weeks gestation of pregnancy

== ENCOUNTER 2025-06-19 15:25 | Emergency (ER) | payer OTHER ==
[~2025-06-19] VITALS: Ht 162.6 cm; Wt 108.0 kg
[~2025-06-19 15:25] MED LIST changes: +PNV1TABL16 PO
[2025-06-19 16:44] VITALS: BP 111/59; TEMP 97.1; O2SAT 98
== END 2025-06-19 19:20 | disposition left against medical advice (07) ==
LOC: M ED 15:25
DX: Z53.21 Procedure and treatment not carried out due to patient leaving prior to being seen by health care provider (principal)

== ENCOUNTER → 2025-10-14 | Outpatient (REF) | payer OTHER ==
[~2025-10-14] MED LIST changes: -ALCL0.05; +ALCL0.057
[2025-10-16 12:37] LABS: HPV APTIMA Not Detected (Not Detected)
== END ==
LOC: M SFHCWAGY 13:17
PROVIDERS: ATTEND Advanced Practice Midwife
DX: Z12.4 Encounter for screening for malignant neoplasm of cervix (principal); R87.610 Atypical squamous cells of undetermined significance on cytologic smear of cervix (ASC-US)